=== PATIENT | female | born 1955 | race American Indian/Alaskan Native ===

== ENCOUNTER 2016-10-21 08:13 | Emergency (ER) | payer OTHER ==
[2016-10-21 08:22] VITALS: TEMP 98.2; BMI 29.2
[2016-10-21] MEDS ORDERED: SODIUM PHOSPHATE/NA BIPHOS 133 ML ENEMA PR ONE (08:43)
[2016-10-21] MEDS ORDERED: MAGNESIUM CITRATE 300 ML BOTTLE PO ONE (08:43)
[2016-10-21] MEDS ORDERED: ONDANSETRON 4 MG/2 ML VIAL IVPUSH ONE (08:49)
[2016-10-21] MEDS ORDERED: MAGNESIUM CITRATE 300 ML BOTTLE ONE (08:49)
[2016-10-21] MEDS ORDERED: ONDANSETRON 4 MG/2 ML VIAL ONE (08:49)
[2016-10-21 09:01] LABS: BASOPHIL 0.5 % (0-2.0); MCH 28.7 pg (25.7-33.7); MCHC 33.2 g/dl (32.0-36.0); MEAN CELL VOLUME 86.6 fl (80-96); MEAN PLT VOLUME 7.5 fl (7.5-11.1); NEUTROPHILS 39.2 % (42.8-82.8); PLATELET COUNT 228 K/MM3 (134-434); RDW 13.6 % (11.6-15.6); WHITE BLOOD COUNT 4.5 K/mm3 (4.0-10.0)
--- NOTE | 2016-10-21 09:08 | PDOC ---
History of Present Illness - General History Source: Patient Exam Limitations: No Limitations - History of Present Illness Initial Comments: 10/21/16 10:59 Allergies: NKA Primary Care Physician: Dr. Emma Connor <Raúl Lara - Last Filed: 10/21/16 10:59> - History of Present Illness Initial Comments: 10/21/16 09:02 The patient is a 61 year old female, with a significant past medical history of hypoparathyroidism, who presents to the emergency department complaining of constipation for approx. one week. The patient reports her last bowel movement was one week ago, though she has been passing small amounts of stool since then. She reports associated symptoms of nausea without vomiting, bloating, generalized abdominal pain that radiates to the back described as a pressure feeling. The patient reports she has had fewer meals in the past couple of days because of the constipation. She denies recent fevers, chills, headache. She denies recent vomit or diarrhea. She denies recent dysuria, frequency, urgency or hematuria. She denies recent chest pain or shortness of breath. <Josh Mabry - Last Filed: 10/21/16 11:17> - General Chief Complaint: Pain Stated Complaint: ABDOMINAL PAIN, DIZZINESS, TINGLING FINGERS Time Seen by Provider: 10/21/16 08:25 Past History <Raúl Lara - Last Filed: 10/21/16 10:59> - Past Medical History Anemia: No Asthma: Yes Cancer: No Cardiac Disorders: No CVA: No COPD: No CHF: No Dementia: No Diabetes: No GI Disorders: Yes (gerd) Disorders: No HTN: No Hypercholesterolemia: Yes Liver Disease: No Suicide Attempt (Hx): No Seizures: No Thyroid Disease: No - Surgical History Abdominal Surgery: No Appendectomy: No Cardiac Surgery: No Cholecystectomy: No Lung Surgery: No Neurologic Surgery: No Orthopedic Surgery: No - Psycho/Social/Smoking Cessation Hx Suicidal Ideation: No Smoking Status: No Smoking History: Never smoked Have you smoked in the past 12 months: No Number of Cigarettes Smoked Daily: 0 Information on smoking cessation initiated: No Hx Alcohol Use: No Drug/Substance Use Hx: No Substance Use Type: None Hx Substance Use Treatment: No <Josh Mabry - Last Filed: 10/21/16 11:17> - Past Medical History Allergies/Adverse Reactions: Allergies Allergy/AdvReac Type Severity Reaction Status Date / Time No Known Allergies Allergy Verified 10/21/16 08:23 Home Medications: Ambulatory Orders NK [No Known Home Medication] 10/21/16 Review of Systems - Review of Systems Comments:: 10/21/16 09:03 "GENERAL/CONSTITUTIONAL: No fever or chills. No weakness. HEAD, EYES, EARS, NOSE AND THROAT: No change in vision. No ear pain or discharge. No sore throat. CARDIOVASCULAR: No chest pain or shortness of breath. RESPIRATORY: No cough, wheezing, or hemoptysis. GASTROINTESTINAL: +Nausea. +Constipation. No vomiting or diarrhea. GENITOURINARY: No dysuria, frequency, or change in urination. MUSCULOSKELETAL: +epigastric pain. No joint or muscle swelling or pain. SKIN: No rash NEUROLOGIC: No headache, vertigo, loss of consciousness, or change in strength/ sensation. ENDOCRINE: No increased thirst. No abnormal weight change. HEMATOLOGIC/LYMPHATIC: No anemia, easy bleeding, or history of blood clots. ALLERGIC/IMMUNOLOGIC: No hives or skin allergy. " <Josh Mabry - Last Filed: 10/21/16 11:17> *Physical Exam - Vital Signs Last Vital Signs Temp Pulse Resp BP Pulse Ox 98.2 F 73 18 145/82 100 10/21/16 08:18 10/21/16 08:18 10/21/16 08:18 10/21/16 08:18 10/21/16 08:18 <Raúl Lara - Last Filed: 10/21/16 10:59> - Vital Signs Last Vital Signs Temp Pulse Resp BP Pulse Ox 98.2 F 73 18 145/82 100 10/21/16 08:18 10/21/16 08:18 10/21/16 08:18 10/21/16 08:18 10/21/16 08:18 - Physical Exam Comments: 10/21/16 09:04 "GENERAL: Awake, alert, and fully oriented. HEAD: No signs of trauma EYES: PERRLA, EOMI, sclera anicteric, conjunctiva clear ENT: Auricles normal inspection, hearing grossly normal, nares patent, oropharynx clear without exudates. Moist mucosa NECK: Normal ROM, supple, no lymphadenopathy, JVD, or masses LUNGS: Breath sounds equal, clear to auscultation bilaterally. No wheezes, and no crackles HEART: Regular rate and rhythm, normal S1 and S2, no murmurs, rubs or gallops ABDOMEN: Soft, nontender, normoactive bowel sounds. No guarding, no rebound. No masses EXTREMITIES: Normal range of motion, no edema. No clubbing or cyanosis. No cords , erythema, or tenderness NEUROLOGICAL: Cranial nerves II through XII grossly intact. Normal speech, normal gait SKIN: Warm, Dry, normal turgor, no rashes or lesions noted. " <RaghavendraJosh - Last Filed: 10/21/16 11:17> ED Treatment Course - LABORATORY CBC & Chemistry Diagram: 10/21/16 08:50 10/21/16 08:50 - ADDITIONAL ORDERS Additional order review: 10/21/16 08:50 RBC 4.45 MCV 86.6 MCHC 33.2 RDW 13.6 MPV 7.5 Neutrophils % 39.2 L D Lymphocytes % 49.1 H D Monocytes % 9.2 Eosinophils % 2.0 D Basophils % 0.5 - RADIOLOGY Radiograph Interpretation: 10/21/16 10:13 Exam#: Type/Exam: [id number] Rad/Abdomen Nigd-Rpzuwzo-Lnwalrz Abdomen: Obstruction Imaging reveals scoliosis, no sign of organomegaly and no sign of free air or calcifictions of significance. Obstructive process is not appreciated. The bones and soft tissue are intact. There is aortic calcification. If symptoms persist, further imagin with CT may be of help. Impression: No sign of an obstructive process, free air or organomegaly. Reported by Dr. Gonzálze Oliver MD. 10/21/16 0934 - Medications Given in the ED: ED Medications Discontinued Medications Generic Name Dose Route Start Last Admin Trade Name Freq PRN Reason Stop Dose Admin Magnesium Citrate 300 ml 10/21/16 08:43 10/21/16 08:57 Citroma - PO 10/21/16 08:44 300 ml ONCE ONE Administration Ondansetron HCl 4 mg 10/21/16 08:49 10/21/16 08:57 Zofran Injection IVPUSH 10/21/16 08:50 4 mg ONCE ONE Administration <Raúl Lara - Last Filed: 10/21/16 10:59> - LABORATORY CBC & Chemistry Diagram: 10/21/16 08:50 10/21/16 08:50 - RADIOLOGY Radiology Studies Ordered: Category Date Time Status ABDOMEN [id number] [RAD] Stat Radiology 10/21/16 08:44 Ordered - Medications Given in the ED: ED Medications Discontinued Medications Generic Name Dose Route Start Last Admin Trade Name Kristine PRN Reason Stop Dose Admin Magnesium Citrate 300 ml 10/21/16 08:43 10/21/16 08:57 Citroma - PO 10/21/16 08:44 300 ml ONCE ONE Administration Ondansetron HCl 4 mg 10/21/16 08:49 10/21/16 08:57 Zofran Injection IVPUSH 10/21/16 08:50 4 mg ONCE ONE Administration <Ou,Josh - Last Filed: 10/21/16 11:17> Medical Decision Making - Medical Decision Making 10/21/16 09:04 61 F with h/o hypoparathyroidism presents to ER with constipation. Possibly related to hypocalcemia. Pt with benign abdomen, no s/s mechanical obstruction. However, given h/o prior c section, will obtain XR to r/o SBO. - Labs - XR - Mag citrate, fleets enema 10/21/16 11:11 CBC,CMP WBC 4.5 K/mm3 (4.0-10.0) 10/21/16 08:50 RBC 4.45 M/mm3 (3.60-5.2) 10/21/16 08:50 Hgb 12.8 GM/dL (10.7-15.3) 10/21/16 08:50 Hct 38.5 % (32.4-45.2) 10/21/16 08:50 MCV 86.6 fl (80-96) 10/21/16 08:50 MCH 28.7 pg (25.7-33.7) 10/21/16 08:50 MCHC 33.2 g/dl (32.0-36.0) 10/21/16 08:50 RDW 13.6 % (11.6-15.6) 10/21/16 08:50 Plt Count 228 K/MM3 (134-434) 10/21/16 08:50 MPV 7.5 fl (7.5-11.1) 10/21/16 08:50 Neutrophils % 39.2 % (42.8-82.8) L D 10/21/16 08:50 Lymphocytes % 49.1 % (8-40) H D 10/21/16 08:50 Monocytes % 9.2 % (3.8-10.2) 10/21/16 08:50 Eosinophils % 2.0 % (0-4.5) D 10/21/16 08:50 Basophils % 0.5 % (0-2.0) 10/21/16 08:50 Sodium 141 mmol/L (136-145) 10/21/16 08:50 Potassium 4.0 mmol/L (3.5-5.1) 10/21/16 08:50 Chloride 103 mmol/L (98-107) 10/21/16 08:50 Carbon Dioxide 27 mmol/L (21-32) 10/21/16 08:50 Anion Gap 11 (8-16) 10/21/16 08:50 BUN 10 mg/dL (7-18) 10/21/16 08:50 Creatinine 0.6 mg/dL (0.55-1.02) 10/21/16 08:50 Creat Clearance w eGFR > 60 (>60) 10/21/16 08:50 Random Glucose 105 mg/dL (74-106) 10/21/16 08:50 Calcium 8.4 mg/dL (8.5-10.1) L 10/21/16 08:50 Phosphorus 3.2 mg/dL (2.5-4.9) 10/21/16 08:50 Magnesium 1.8 mg/dL (1.8-2.4) 10/21/16 08:50 Total Bilirubin 0.4 mg/dL (0.2-1.0) 10/21/16 08:50 AST 28 U/L (15-37) D 10/21/16 08:50 ALT 28 U/L (12-78) D 10/21/16 08:50 Alkaline Phosphatase 64 U/L (45-117) 10/21/16 08:50 Total Protein 7.0 g/dl (6.4-8.2) 10/21/16 08:50 Albumin 3.8 g/dl (3.4-5.0) 10/21/16 08:50 Lipase 94 U/L (73-393) 10/21/16 08:50 Pt reassessed s/p fleets enema and mag citrate. Reports that she had 2 large bowel movements and feels significantly better and now denies any pain. Has tolerated PO in ER. Abdomen is benign. XR shows no signs of obstruction. Pt clinically stable for DC. <Josh Mabry - Last Filed: 10/21/16 11:17> *DC/Admit/Observation/Transfer - Attestations Scribe Attestion: 10/21/16 09:25 Documentation prepared by Raúl Lara, acting as center medical specialist for Josh Mabry MD. <Raúl Lara - Last Filed: 10/21/16 10:59> - Attestations Physician Attestion: 10/21/16 11:17 I, Dr. Josh Mabry MD, attest that this document has been prepared under my direction and personally reviewed by me in its entirety. I further attest, that it accurately reflects all work, treatment, procedures and medical decision -making performed by me. <Josh Mabry - Last Filed: 10/21/16 11:17> Diagnosis at time of Disposition: Constipation - Discharge Dispostion Disposition: HOME Condition at time of disposition: Good - Referrals Referrals: Emma Connor MD [Primary Care Provider] - - Patient Instructions Printed Discharge Instructions: DI for Constipation Additional Instructions: Please follow up with your behavioral health clinician to have your constipation further addressed. You may need to be put on a more aggressive regimen of stool softeners. See your steamer operator regarding your hypoparathyroidism and calcium levels. Your calcium today was not significantly decreased, but a low calcium can potentially cause constipation.
[2016-10-21 09:28] LABS: PHOSPHOROUS 3.2 mg/dL (2.5-4.9)
[2016-10-21 09:29] LABS: ALBUMIN 3.8 g/dl (3.4-5.0); ALK PHOS 64 U/L (45-117); ANION GAP 11 (8-16); BILIRUBIN,TOTAL 0.4 mg/dL (0.2-1.0); CALCIUM 8.4 mg/dL (8.5-10.1); CO2 27 mmol/L (21-32); CREATININE 0.6 mg/dL (0.55-1.02); GLUCOSE,RANDOM 105 mg/dL (74-106); SGPT/ALT 28 U/L (12-78)
[2016-10-21 09:57] LABS: MAGNESIUM 1.8 mg/dL (1.8-2.4)
[2016-10-21 09:58] LABS: SGOT/AST 28 U/L (15-37)
[2016-10-21 11:25] VITALS: BP 116/70; PULSE 64
== END 2016-10-21 11:25 | disposition home or self-care (01) ==
LOC: JER 08:13
PROC: 3E033GC Introduction of Other Therapeutic Substance into Peripheral Vein, Percutaneous Approach (ICD-10-PCS; principal; 2016-10-21)
DX: K59.09 Other constipation (principal); E20.9 Hypoparathyroidism, unspecified
CPT/HCPCS: 36415; 74020-TC; 80053; 83690; 83735; 84100; 85025; 96374; 99283-25

== ENCOUNTER 2016-12-19 06:41 | Observation (INO) | payer OTHER ==
--- NOTE | 2016-12-19 07:46 | PDOC ---
History of Present Illness - General Chief Complaint: Pain, Acute Stated Complaint: NAUSEA Time Seen by Provider: 12/19/16 07:21 - History of Present Illness Initial Comments: 12/19/16 07:45 The patient is a 61 yo f w/ PMH DM, GERD, HLD, HTN comes into the ED c/o a 1 week history of worsening nausea, vomiting and abdominal pain. The patient states that approximately 1 month ago, she began having a dull right sided epigastric pain which radiates across the right side of her abdomen and to her back. The pain is worse on eating and has no alleviating factors. The pain got progressively worse and became associated with nausea and NBNB vomiting on sunday. The patient also endorses decreased appetite and a 36 lb weight loss over the last 2 months as well as constipation. The patient has seen a GI doctor for these problems in the past and was scheduled for EGD, but was unable to undergo the exam 2/2 weakness. Patient measured a fever to 100 degrees at home. Patient denies chills, shortness of breath or palpitations. 12/19/16 10:26 Past History - Past Medical History Allergies/Adverse Reactions: Allergies Allergy/AdvReac Type Severity Reaction Status Date / Time No Known Allergies Allergy Verified 12/19/16 06:57 Home Medications: Ambulatory Orders Docusate Sodium [Colace -] 100 mg PO DAILY 11/24/16 Escitalopram Oxalate [Lexapro -] 5 mg PO DAILY 11/24/16 Lisinopril/Hydrochlorothiazide [Lisinopril-Hctz 10-12.5 mg Tab] 1 each PO DAILY 11/24/16 Metformin HCl [Metformin HCl ER] 500 mg PO DAILY 11/24/16 Simvastatin 5 mg PO DAILY 11/24/16 Trazodone HCl [Desyrel -] 50 mg PO HS 11/24/16 Anemia: No Asthma: Yes Cancer: No Cardiac Disorders: No CVA: No COPD: No CHF: No Dementia: No Diabetes: Yes (Pre-diabetes) GI Disorders: Yes (gerd) Disorders: No HTN: No Hypercholesterolemia: Yes Liver Disease: No Seizures: No Thyroid Disease: No - Surgical History Abdominal Surgery: No Appendectomy: No Cardiac Surgery: No Cholecystectomy: No Lung Surgery: No Neurologic Surgery: No Orthopedic Surgery: No - Suicide/Smoking/Psychosocial Hx Smoking Status: No Smoking History: Unknown if ever smoked Have you smoked in the past 12 months: No Number of Cigarettes Smoked Daily: 0 Information on smoking cessation initiated: No Hx Alcohol Use: No Drug/Substance Use Hx: No Substance Use Type: None Hx Substance Use Treatment: No Review of Systems - Review of Systems Constitutional: Yes: Fever (low grade to 100 at home). No: Chills Respiratory: No: Cough, Shortness of Breath Cardiac (ROS): No: Chest Pain, Edema, Palpitations ABD/GI: Yes: Constipated, Nausea, Poor Appetite, Vomiting, Abdominal cramping. No: Diarrhea, Tarry Stools : Yes: Frequency. No: Burning, Dysuria Musculoskeletal: Yes: Back Pain Integumentary: No: Bruising, Erythema Neurological: No: Headache, Numbness, Tingling *Physical Exam - Vital Signs Last Vital Signs Temp Pulse Resp BP Pulse Ox 97.8 F 80 14 125/87 95 12/19/16 06:58 12/19/16 06:58 12/19/16 06:58 12/19/16 06:58 12/19/16 06:58 - Physical Exam General Appearance: Yes: Appropriately Dressed, Mild Distress HEENT: positive: Normal Voice Neck: positive: Trachea midline Respiratory/Chest: positive: Lungs Clear, Normal Breath Sounds. negative: Chest Tender, Respiratory Distress, Accessory Muscle Use Cardiovascular: positive: Regular Rhythm, S1, S2, Tachycardia. negative: Edema , JVD, Murmur, Gallop/S3, Gallop/S4 Gastrointestinal/Abdominal: positive: Tender (exquisite tenderness to palpation in the epigastrium and right sided abdomen assoceated with increased nausea), Flat, Soft, Increased Bowel Sounds. negative: Guarding Musculoskeletal: positive: Normal Inspection, CVA Tenderness (CVA tenderness on the right associated with increased nausea ) Extremity: positive: Normal Inspection Integumentary: positive: Normal Color, Dry, Warm Neurologic: positive: Fully Oriented, Alert, Normal Mood/Affect, Normal Response Heart Score/ECG Review - ECG Intrepretation Rhythm: Regular Rhythm - [place]if[place]: Normal - ECG Impressions Normal ECG: Yes ED Treatment Course - LABORATORY CBC & Chemistry Diagram: 12/19/16 08:14 12/19/16 08:14 Medical Decision Making - Medical Decision Making 12/19/16 08:25 The patient is a 61 YO F W/ PMH DM, HLD, hypoparathyroidism s/p parathyroidectomy, HTN comes into the ED w/ a 1 month history of abdominal pain , nausea, vomiting, constipation and 36 lb weight loss over last month. Patient had a normal EGD and colonoscopy approximately 2 weeks ago. This constellation of symptoms is concerning for several conditions including colitis, small bowel obstruction, abdominal masses or cholecystitis. -CBC, CMP -Lipase -type and screen -coags -EKG -morphine 4mg -zofran 4mg -1L NS bolus -CT abdomen/pelvis with IV contrast -UA -Urine culture 12/19/16 09:33 -CBC, CMP WNL -Awaiting CT abdomen and Pelvis w/ contrast 12/19/16 10:21 -on reassessment, patient states that she feels better after medications -UA WNL 12/19/16 12:48 -CT negative for acute pathology -Patient will need to be admitted for further workup -a somatic disorder also needs to be considered for this patient. 12/19/16 12:52 -Discussed the case w/ Dr. Guevara, who will agree to accept the patient for observation. -will place consults to Dr. Hdez and Dr. Rausch at the request of Dr. Guevara *DC/Admit/Observation/Transfer Diagnosis at time of Disposition: Abdominal pain Qualifiers: Abdominal location: generalized Qualified Code(s): R10.84 - Generalized abdominal pain - Discharge Dispostion Condition at time of disposition: Improved Admit: Yes - Referrals Referrals: Emma Connor MD [Primary Care Provider] - - Patient Instructions - Post Discharge Activity
[2016-12-19] MEDS ORDERED: ONDANSETRON 4 MG/2 ML VIAL IVPUSH ONE (08:02)
[2016-12-19] MEDS ORDERED: SODIUM CHLORIDE 1,000 ML IV STA (08:13)
[2016-12-19] MEDS ORDERED: morphine CARPU-JECT 4 MG/1 ML DISP.SYRIN IVPUSH ONE (08:14)
[2016-12-19] MEDS ORDERED: ONDANSETRON 4 MG/2 ML VIAL ONE (08:16)
[2016-12-19 08:42] LABS: BASOPHIL 0.4 % (0-2.0); EOSINOPHIL 0.6 % (0-4.5); MCH 28.5 pg (25.7-33.7); MCHC 32.9 g/dl (32.0-36.0); MEAN CELL VOLUME 86.9 fl (80-96); MEAN PLT VOLUME 7.6 fl (7.5-11.1); NEUTROPHILS 54.9 % (42.8-82.8); PLATELET COUNT 230 K/MM3 (134-434); RDW 13.5 % (11.6-15.6); WHITE BLOOD COUNT 4.1 K/mm3 (4.0-10.0)
--- NOTE | 2016-12-19 08:48 | PDOC ---
Attending Attestation - Resident Resident Name: Raoul Mckeon - ED Attending Attestation I have performed the following: I have examined & evaluated the patient, The case was reviewed & discussed with the resident, I agree w/resident's findings & plan, Exceptions are as noted - HPI HPI: 12/19/16 08:45 61-year-old femalewith history of GERD, diabetes, high cholesterol presents with 2 months of worsening epigastric discomfort and anorexia particularly worsened over the last 2 weeks, with intractable nonbloody but bilious nausea and vomiting, worsening generalized weakness, and continued anorexia with over 30 pound weight loss. No fevers or chills, occasional night sweats. Seen by Dr. Jovel, had endoscopy and colonoscopy 2 weeks ago that were reportedly within normal limits. Presents today for worsening symptoms. - Physicial Exam PE: 12/19/16 08:46 Vital signs normal. No acute distress, no visible jaundice or pallor Abdomen is soft and nondistended, exquisitely tender in the epigastric and right abdomen without palpable mass Neurologically intact - Medical Decision Making 12/19/16 08:47 Patient seen and evaluated with the resident. I agree with the overall evaluation, assessment, and management with the following summary of visit: 61-year-old female with subacute but worsening upper abdominal discomfort in the setting of nausea/vomiting/anorexia and weight loss. Presentation could be consistent with broad differential, neoplasm is of some concern, rule out biliary/pancreatic etiology, possible gastroparesis, not consistent with obstruction. Labs, urinalysis EKG IV fluids, pain control, nausea control CT of the abdomen and pelvis Reassess 12/19/16 12:01 labs, ua, ctap wnl without acute abnormalities. Pt still quite uncomfortable, still with tenderness in the epigastric/R abdomen with guarding. Anorexia persists. Given the presentation and worsening clinical status with weight loss, will admit for hydration and expedited GI workup. ? psych/depression? as diagnosis of exclusion, but no acute ideations at this time. Pt agrees and prefers admission as well. Dr. Cheema, admitting for Dr. Connor , called. Heart Score/ECG Review #1 ECG reviewed & interpreted by me at: 09:41 General ECG Interpretation: Sinus Rhythm, Normal Rate (69), Normal Intervals ( qtc 424), No acute ischemic changes
[2016-12-19 08:55] LABS: INR 1.16 (0.82-1.09); PROTHROMBIN TIME (PATIENT) 13.1 SEC (9.98-11.88)
[2016-12-19 09:23] LABS: ANION GAP 7 (8-16); BILIRUBIN,TOTAL 0.5 mg/dL (0.2-1.0); CALCIUM 8.5 mg/dL (8.5-10.1); CO2 30 mmol/L (21-32); CREATININE 0.6 mg/dL (0.55-1.02); GLUCOSE,RANDOM 104 mg/dL (74-106); SGOT/AST 16 U/L (15-37); SGPT/ALT 22 U/L (12-78); TOT PROT 7.4 g/dl (6.4-8.2)
[2016-12-19 09:24] LABS: ALK PHOS 62 U/L (45-117)
[2016-12-19] MEDS ORDERED: morphine SULFATE 4 MG/ML VIAL ONE (09:28)
[2016-12-19 10:11] LABS: URINE APPEARANCE SLCLOUDY; URINE BILIRUBIN NEGATIVE (NEGATIVE); URINE BLOOD NEGATIVE (NEGATIVE); URINE COLOR YELLOW; URINE GLUCOSE (UA) NEGATIVE (NEGATIVE); URINE KETONE TRACE (NEGATIVE); URINE NITRITE NEGATIVE (NEGATIVE); URINE PROTEIN NEGATIVE (NEGATIVE); URINE UROBILINOGEN NEGATIVE mg/dL (0.2-1.0)
--- NOTE | 2016-12-19 10:36 | EKG ---
Test Reason : Blood Pressure : / mmHG Vent. Rate : 069 BPM Atrial Rate : 069 BPM P-R Int : 170 ms QRS Dur : 072 ms QT Int : 396 ms P-R-T Axes : 076 025 048 degrees QTc Int : 424 ms NORMAL SINUS RHYTHM NORMAL ECG WHEN COMPARED WITH ECG OF 28-MAR-2012 09:41, NO SIGNIFICANT CHANGE WAS FOUND REPEAT EKG IF CLINICALLY INDICATED Confirmed by CEZAR GALINDO MD ([id number]) on 12/19/2016 10:36:08 AM Referred By: Confirmed By:CEZAR GALINDO MD
[2016-12-19] MEDS ORDERED: ACETAMINOPHEN 325 MG TABLET (FP) PO ONE (16:03)
[2016-12-19] MEDS ORDERED: ACETAMINOPHEN 325 MG TABLET (FP) ONE (16:17)
[2016-12-19 16:19] VITALS: BMI 27.1
[2016-12-19 16:51] LABS: URINE LEUK ESTERASE Negative (NEGATIVE)
--- NOTE | 2016-12-19 18:24 | HP ---
Admitting History and Physical - Primary Care Physician PCP: Emma Connor - Admission Chief Complaint: weight loss, diffuse abdominal pain History of Present Illness: diffuse abdominal pain especially after eating, approx 20-23 pound weight loss in past months loss of appetite, today was vomiting, not able to keep food down History Source: Patient Limitations to Obtaining History: No Limitations - Past Medical History Cardiovascular: Yes: HTN, Hyperlipdemia Endocrine: Yes: Diabetes Mellitus (prediabetes), Hyperparathyroidism (in past) - Past Surgical History Additional Past Surgical History: parathyroidectomy for hypercalcemia x2 c section - Smoking History Smoking history: Former smoker Have you smoked in the past 12 months: No Aproximately how many cigarettes per day: 0 - Alcohol/Substance Use Hx Alcohol Use: No - Social History ADL: Independent History of Recent Travel: No Home Medications - Allergies Allergies/Adverse Reactions: Allergies Allergy/AdvReac Type Severity Reaction Status Date / Time No Known Allergies Allergy Verified 12/19/16 06:57 - Home Medications Home Medications: Ambulatory Orders Docusate Sodium [Colace -] 100 mg PO DAILY 11/24/16 Escitalopram Oxalate [Lexapro -] 5 mg PO DAILY 11/24/16 Lisinopril/Hydrochlorothiazide [Lisinopril-Hctz 10-12.5 mg Tab] 1 each PO DAILY 11/24/16 Metformin HCl [Metformin HCl ER] 500 mg PO DAILY 11/24/16 Simvastatin 5 mg PO DAILY 11/24/16 Trazodone HCl [Desyrel -] 50 mg PO HS 11/24/16 Family Disease History - Family Disease History Family History: Unremarkable Review of Systems - Review of Systems Constitutional: reports: Loss of Appetite, Unintentional Wgt. Loss, Weakness Eyes: reports: No Symptoms HENT: reports: No Symptoms Neck: reports: No Symptoms Cardiovascular: reports: No Symptoms Respiratory: reports: No Symptoms Gastrointestinal: reports: Abdominal Pain, Constipation, Vomiting. denies: Melena, Rectal Bleeding Genitourinary: reports: No Symptoms Musculoskeletal: reports: No Symptoms Integumentary: reports: No Symptoms Neurological: reports: No Symptoms Endocrine: reports: No Symptoms Hematology/Lymphatic: reports: No Symptoms Psychiatric: reports: Depression Physical Examination Vital Signs: Vital Signs Temperature 98.3 F 12/19/16 17:00 Pulse Rate 60 12/19/16 17:00 Respiratory Rate 18 12/19/16 17:00 Blood Pressure 134/70 12/19/16 17:00 O2 Sat by Pulse Oximetry (%) 99 12/19/16 16:14 Constitutional: Yes: Well Nourished, No Distress Eyes: Yes: Conjunctiva Clear HENT: Yes: Atraumatic, Normocephalic Neck: Yes: Supple, Trachea Midline Cardiovascular: Yes: Regular Rate and Rhythm Respiratory: Yes: Regular, CTA Bilaterally Gastrointestinal: Yes: Normal Bowel Sounds, Soft, Tenderness (mild diffuse) Renal/: Yes: WNL Extremities: Yes: WNL Edema: No Peripheral Pulses WNL: Yes Integumentary: Yes: WNL Neurological: Yes: WNL Psychiatric: Yes: Other (flat affect denies suicidal ideation, but has stated that sometimes she does not feel like living) Labs: CBC, BMP 12/19/16 08:14 12/19/16 08:14 Imaging - Results Cat Scan: Report Reviewed Problem List - Problems (1) Vomiting Code(s): R11.10 - VOMITING, UNSPECIFIED Qualifiers: Vomiting type: unspecified Vomiting Intractability: non-intractable Nausea presence: with nausea Qualified Code(s): R11.2 - Nausea with vomiting, unspecified (2) Abdominal pain Code(s): R10.9 - UNSPECIFIED ABDOMINAL PAIN Qualifiers: Abdominal location: generalized Qualified Code(s): R10.84 - Generalized abdominal pain (3) Constipation Code(s): K59.00 - CONSTIPATION, UNSPECIFIED Qualifiers: Constipation type: unspecified constipation type Qualified Code(s): K59.00 - Constipation, unspecified (4) Weakness Code(s): R53.1 - WEAKNESS Assessment/Plan extensive gi w/up including CT abd. EGD, colonoscopy upper gi series within past month pt still c/o loss of appetite, abd.pain-somatization? depression? very flat affect, appears depressed trial of remeron psychiatric evaluation requested d/w
[2016-12-19] MEDS ORDERED: POTASSIUM CHLORIDE 10 MEQ in SODIUM CHLORIDE 0.45% 1,000 ML IVPB SCH (18:30)
--- NOTE | 2016-12-19 19:01 | CON.GI ---
Consult Consult Specialty:: GI Referred by:: Dr Amaro Reason for Consultation:: abdominal pain - History of Present Illness Chief Complaint: abdominal pain History of Present Illness: 61 F well-known to myself, who has been c/o abdominal pain for several years. She has had a very complete w/u which has been negative. She has had several admissions to the hospital which have been unrevealing. She is now admitted for same issue. She states pain is post-prandial. - History Source History Provided By: Patient, Medical Record Limitations to Obtaining History: No Limitations - Past Medical History Cardio/Vascular: Yes: HTN, Hyperlipdemia Endocrine: Yes: Diabetes Mellitus (prediabetes), Hyperparathyroidism (in past) - Alcohol/Substance Use Hx Alcohol Use: No - Smoking History Smoking history: Former smoker Have you smoked in the past 12 months: No Aproximately how many cigarettes per day: 0 - Social History ADL: Independent History of Recent Travel: No Home Medications - Allergies Allergies/Adverse Reactions: Allergies Allergy/AdvReac Type Severity Reaction Status Date / Time No Known Allergies Allergy Verified 12/19/16 06:57 - Home Medications Home Medications: Ambulatory Orders Docusate Sodium [Colace -] 100 mg PO DAILY 11/24/16 Escitalopram Oxalate [Lexapro -] 5 mg PO DAILY 11/24/16 Lisinopril/Hydrochlorothiazide [Lisinopril-Hctz 10-12.5 mg Tab] 1 each PO DAILY 11/24/16 Metformin HCl [Metformin HCl ER] 500 mg PO DAILY 11/24/16 Simvastatin 5 mg PO DAILY 11/24/16 Trazodone HCl [Desyrel -] 50 mg PO HS 11/24/16 Physical Exam-GI Vital Signs: Vital Signs Temperature 98.3 F 12/19/16 17:00 Pulse Rate 60 12/19/16 17:00 Respiratory Rate 18 12/19/16 17:00 Blood Pressure 134/70 12/19/16 17:00 O2 Sat by Pulse Oximetry (%) 99 12/19/16 16:14 Constitutional: Yes: Well Nourished, No Distress, Calm HENT: Yes: Normocephalic Cardiovascular: Yes: Regular Rate and Rhythm Respiratory: Yes: CTA Bilaterally Gastrointestinal Inspection: Yes: WNL ...Auscultate: Yes: Normoactive Bowel Sounds ...Palpate: Yes: Soft. No: Tenderness ...Percussion: Yes: Dullness Labs: CBC, BMP 12/19/16 08:14 12/19/16 08:14 INR, PTT INR 1.16 (0.82-1.09) H 12/19/16 08:14 Imaging - Results Cat Scan: Report Reviewed (fatty liver) Assessment/Plan 61 F well-known to myself again admitted with abdominal pain Clear liquids Tox screen -r/o marijuana related cyclic vomiting Advance diet toorrow pending clinical
[2016-12-19] MEDS: MIRTAZAPINE 15 MG TABLET (FP) PO SCH ×2 (21:26→21:27)
[2016-12-19] MEDS ORDERED: traZODone HCL 50 MG TABLET (FP) PO SCH (22:00)
--- NOTE | 2016-12-20 09:15 | PN ---
Progress Note (short form) - Note Progress Note: tolerating food well in hospital no vomiting affect is still very flat, denies new complaints, slept well Vital Signs Period Temp Pulse Resp BP Sys/Zarate Pulse Ox Last 24 Hr 97.9 F-98.3 F 60-66 18-18 102-134/58-70 99-100 s1s2 rrr lungs cta abd soft +bs nt no edema imp /plan abd pain with extensive unremarkable work up awaiting psychiatry evaluation for somatization/depression bp, sugar has been normal stop bp meds and metformin started remeron last night instead of lexapro if seen by psychiatry would dc home today Problem List - Problems (1) Vomiting Code(s): R11.10 - VOMITING, UNSPECIFIED Qualifiers: Vomiting type: unspecified Vomiting Intractability: non-intractable Nausea presence: with nausea Qualified Code(s): R11.2 - Nausea with vomiting, unspecified (2) Abdominal pain Code(s): R10.9 - UNSPECIFIED ABDOMINAL PAIN Qualifiers: Abdominal location: generalized Qualified Code(s): R10.84 - Generalized abdominal pain (3) Constipation Code(s): K59.00 - CONSTIPATION, UNSPECIFIED Qualifiers: Constipation type: unspecified constipation type Qualified Code(s): K59.00 - Constipation, unspecified (4) Weakness Code(s): R53.1 - WEAKNESS
[2016-12-20] MEDS ORDERED: DOCUSATE SODIUM 100 MG CAPSULE (FP) PO SCH (10:00)
[2016-12-20 10:02] LABS: URINE MARIJUANA THC NEGATIVE ng/ml (CUTOFF=50)
[2016-12-20 12:46] VITALS: BP 102/47; PULSE 89; TEMP 98.2
--- NOTE | 2016-12-21 08:21 | DS ---
Physical Examination Vital Signs: Vital Signs Temperature 98.2 F 12/20/16 10:00 Pulse Rate 89 12/20/16 10:00 Respiratory Rate 18 12/20/16 10:00 Blood Pressure 102/47 12/20/16 10:00 O2 Sat by Pulse Oximetry (%) 99 12/20/16 05:18 Labs: CBC, BMP 12/19/16 08:14 12/19/16 08:14 Discharge Summary Reason For Visit: ABD PAIN Hospital Course: admitted for intractable nausea and vomiting and chronic abd pain with extensive unremarkable work up CT abdomen, recent egd, colonoscopy and UGI series all unremarkable pt has flat affect, lost mother in the summer, appears depressed symptoms possibly due to somatization/depression bp, sugar has been normal stop bp meds and metformin started remeron last night instead of lexapro recommended psychiatric evaluation, however pt did not want to wait for her in the hospital eating without vomiting or nausea medically stable for dc with close outpt f/up Condition: Improved - Instructions Referrals: Emma Connor MD [Primary Care Provider] - Disposition: HOME - Home Medications Comprehensive Discharge Medication List: Ambulatory Orders Docusate Sodium [Colace -] 100 mg PO DAILY 11/24/16 Trazodone HCl [Desyrel -] 50 mg PO HS 11/24/16 Mirtazapine [Remeron -] 15 mg PO HS #30 tablet 12/20/16
== END 2016-12-20 13:46 | disposition home or self-care (01) ==
LOC: JER 06:41 → JERBED 12:57 → J8W 16:56
PROVIDERS: ADMIT Internal Medicine; ATTEND Internal Medicine
PROC: 3E033NZ Introduction of Analgesics, Hypnotics, Sedatives into Peripheral Vein, Percutaneous Approach (ICD-10-PCS; principal; 2016-12-19)
PROC: 3E033GC Introduction of Other Therapeutic Substance into Peripheral Vein, Percutaneous Approach (ICD-10-PCS; 2016-12-19)
PROC: 3E0337Z Introduction of Electrolytic and Water Balance Substance into Peripheral Vein, Percutaneous Approach (ICD-10-PCS; 2016-12-19)
DX: R10.84 Generalized abdominal pain (principal); K59.00 Constipation, unspecified; R11.2 Nausea with vomiting, unspecified; R53.1 Weakness; I10 Essential (primary) hypertension; E11.9 Type 2 diabetes mellitus without complications; E78.5 Hyperlipidemia, unspecified; K21.9 Gastro-esophageal reflux disease without esophagitis; J45.909 Unspecified asthma, uncomplicated; R73.03 Prediabetes; Z79.84 Long term (current) use of oral hypoglycemic drugs; Z87.891 Personal history of nicotine dependence
CPT/HCPCS: 36415; 74177-TC; 80053; 80307; 81003; 83690; 85025; 85610; 86850; 86900; 86901; 87086; 93005; 93010; 96361; 96374; 96375; 99285-25; G0378

== ENCOUNTER 2017-07-05 07:25 | Emergency (ER) | payer OTHER ==
[2017-07-05 07:32] VITALS: BP 122/75; PULSE 75; TEMP 98.4; BMI 29.8
--- NOTE | 2017-07-05 07:37 | PDOC ---
Attending Attestation - Resident Resident Name: Lucien Starkey - ED Attending Attestation I have performed the following: I have examined & evaluated the patient, The case was reviewed & discussed with the resident, I agree w/resident's findings & plan - HPI HPI: 07/05/17 08:19 The patient is a 61 year old female, with a significant past medical history of prediabetes, hypertension, hyperlipidemia, GERD, parathyroid cyst, and asthma, who presents to the emergency department with multiple medical complaints for several months. Patient endorses episodes of blurry vision and lightheadedness, but denies any headache, dizziness, or photophobia. She reports diffuse body aches, back pain, and tingling in her hands. Patient reports presenting to the ED today for worsening tingling, and states she saw her Commissions Analyst yesterday, who recommended she come to the ED for blood work. She endorses some nausea and vomiting, but denies any abdominal pain, diarrhea, or constipation. Patient reports she is schedule for follow-up with GI, Dr. Mckinley, next week for endoscopy. She denies any recent fever or chills. She denies any recent travel or sick contacts. Allergies: NKDA Past Surgical History: None reported Social History: Former smoker. No ETOH or recreational drug use. - Medical Decision Making 07/05/17 08:19 Documentation prepared by Guilherme Andres, acting as medical physiologist for Barby Rutherford MD. <Guilherme Andres - Last Filed: 07/05/17 08:19> - Physicial Exam PE: 07/05/17 08:25 Agree with resident exam. Patient is well appearing and in no acute distress. Neurologically intact. Abdomen is soft, non tender and non distended. - Medical Decision Making Pt presents to the ED with multiple complaints, including nausea and generalized weakness. differential includes hypothyroidism, electrolyte derrangement. Will check labs and reassess. 07/05/17 08:26 <Barby Rutherford - Last Filed: 07/05/17 08:36>
--- NOTE | 2017-07-05 07:46 | PDOC ---
History of Present Illness - General Chief Complaint: Lightheaded Stated Complaint: BLURRED VISION/SIDE PAIN/TINGLING Time Seen by Provider: 07/05/17 07:36 - History of Present Illness Initial Comments: 07/05/17 08:36 The patient is a 61 year old female with a history of HTN, HLD, DM, Parathyroid cyst who presents for evaluation of multiple medical complaints. The patient reports lightheadedness, blurred vision, tingling in her extremities, and generalized back pain with radiation into her legs over the past several months. She notes worsening symptoms over the past 1 day including some nausea and 1 episode of non-bilious, non-bloody vomiting prompting her presentation to the ED for further evaluation. She notes that she saw her primary care provider 1 day ago as well as an respiratory care assistant 1 day ago for her parathyroid cyst and was scheduled to have blood work performed but has been unable to go since that time. She notes that she has an endoscopy scheduled next week as well for long standing abdominal discomfort issues. She otherwise denies fevers , chills, SOB, chest pain, or changes with urination or bowel movements. Past History - Past Medical History Allergies/Adverse Reactions: Allergies Allergy/AdvReac Type Severity Reaction Status Date / Time No Known Allergies Allergy Verified 07/05/17 07:26 Home Medications: Ambulatory Orders Docusate Sodium [Colace -] 100 mg PO DAILY 11/24/16 traZODone HCL [Desyrel -] 50 mg PO HS 11/24/16 Mirtazapine [Remeron -] 15 mg PO HS #30 tablet 12/20/16 Anemia: No Asthma: Yes Cancer: No Cardiac Disorders: No CVA: No COPD: No CHF: No DVT: No Dementia: No Diabetes: Yes (Pre-diabetes) GI Disorders: Yes (gerd) Disorders: No HTN: No Hypercholesterolemia: Yes Liver Disease: No Seizures: No Thyroid Disease: No Other medical history: parathyroid cyst - Surgical History Abdominal Surgery: No Appendectomy: No Cardiac Surgery: No Cholecystectomy: No Lung Surgery: No Neurologic Surgery: No Orthopedic Surgery: No - Suicide/Smoking/Psychosocial Hx Smoking Status: No Smoking History: Former smoker Have you smoked in the past 12 months: No Number of Cigarettes Smoked Daily: 0 Information on smoking cessation initiated: No Hx Alcohol Use: No Drug/Substance Use Hx: No Substance Use Type: None Hx Substance Use Treatment: No Review of Systems - Review of Systems Comments:: 07/05/17 08:41 Constitutional: No fevers, chills, fatigue, HEENT: No Rhinorrhea, nasal congestion, visual changes Cardiovascular: Lightheadedness. No chest pain, syncope, palpitations, Respiratory: No Cough, SOB, Hemoptysis, Gastrointestinal: Nausea, Vomiting. No Constipation, Diarrhea, Melena Genitourinary: No Dysuria, Frequency, Urgency, Hesitancy, Hematuria, Flank pain Musculoskeletal: Myalgia, No arthralgia Skin: No rashes, itching, bruising, pallor Neurologic: Tingling. No Headache, Dizziness, Numbness, Weakness, Psychiatric: No Hallucinations. No SI or HI *Physical Exam - Vital Signs Last Vital Signs Temp Pulse Resp BP Pulse Ox 98.4 F 75 18 122/75 100 07/05/17 07:28 07/05/17 07:28 07/05/17 07:28 07/05/17 07:28 07/05/17 07:28 - Physical Exam Comments: 07/05/17 08:42 General Appearance: Nourished. No Apparent Distress HEENT: EOMI, HALIMA. No Pharyngeal Erythema, Tonsillar Exudate, Tonsillar Erythema Neck: No Cervical Lymphadenopathy Respiratory/Chest: Lungs Clear, Normal Breath Sounds. No Crackles, Rales, Rhonchi, Wheezing Cardiovascular: Regular Rhythm, Regular Rate. No Murmur, Gallops, Rubs Gastrointestinal/Abdominal: Normal Bowel Sounds, Soft. No Guarding, Rebound, Tenderness Musculoskeletal: No CVA Tenderness Extremity: Normal Capillary Refill Integumentary: Normal Color, Dry, Warm Neurologic: rush seater II-XII NML intact, Fully Oriented, Alert, Normal Mood/Affect, Normal Response, Motor Strength 5/5. Heart Score/ECG Review #1 ECG reviewed & interpreted by me at: 08:43 General ECG Interpretation: Sinus Rhythm, Normal Rate, Normal Intervals, No acute ischemic changes ED Treatment Course - LABORATORY CBC & Chemistry Diagram: 07/05/17 08:10 07/05/17 08:10 Medical Decision Making - Medical Decision Making 07/05/17 08:43 The patient is a 61 year old female with a history of HTN, HLD, DM, Parathyroid cyst who presents for evaluation of multiple medical complaints. Differential includes but is not limited to: Thyroid dysfunction, Pancreatitis, Musculoskeletal, Infectious, Metabolic Derangement. Given the patient history, we will obtain a cbc, cmp, lipase, tsh and ekg to evaluate further for possible etiologies. We will treat with iv fluids and zofran in the meantime and continue to monitor and reassess. 07/05/17 09:43 CBC, cmp, lipase, tsh are unremarkable. We are comfortable discharging the patient home at this time with primary care provider follow up. We discussed the results, plan, and return precautions with the patient who voiced understanding and is agreeable with the plan. *DC/Admit/Observation/Transfer Diagnosis at time of Disposition: Tingling, Nausea - Discharge Dispostion Disposition: HOME Condition at time of disposition: Stable Decision to Admit order: No - Referrals Referrals: Emma Connor MD [Primary Care Provider] - - Patient Instructions Printed Discharge Instructions: DI for Numbness/tingling Additional Instructions: Please return to the ER if you experience concerning or worsening symptoms including worsening pain, vomiting, fevers, or weakness. Your lab results were normal here in the ER. It is important that you call to schedule a follow up appointment with your primary care provider within 2-3 days to discuss your ER visit and further management of your symptoms. - Post Discharge Activity
[2017-07-05] MEDS ORDERED: SODIUM CHLORIDE 1,000 ML IV STA (07:50)
[2017-07-05] MEDS ORDERED: ONDANSETRON 4 MG/2 ML VIAL IVPUSH ONE (07:50)
[2017-07-05 08:26] LABS: BASO % 0.7 % (0-2.0); HEMATOCRIT 40.3 % (32.4-45.2); HEMOGLOBIN 13.3 GM/dL (10.7-15.3); LYMPH % 32.5 % (8-40); MCH 28.6 pg (25.7-33.7); MCHC 32.9 g/dl (32.0-36.0); MEAN CELL VOLUME 86.9 fl (80-96); MONO % 8.5 % (3.8-10.2); NEUT % 57.3 % (42.8-82.8); PLATELET COUNT 262 K/MM3 (134-434); RBC 4.64 M/mm3 (3.60-5.2); RDW 13.3 % (11.6-15.6); WHITE BLOOD COUNT 6.5 K/mm3 (4.0-10.0)
[2017-07-05] MEDS ORDERED: ONDANSETRON 4 MG/2 ML VIAL ONE (09:07)
[2017-07-05 09:10] LABS: CHLORIDE 102 mmol/L (98-107); SODIUM 138 mmol/L (136-145)
[2017-07-05 09:12] LABS: BLOOD UREA NITROGEN 22 mg/dL (7-18)
[2017-07-05 09:28] LABS: ALBUMIN 3.9 g/dl (3.4-5.0); ALK PHOS 60 U/L (45-117); ANION GAP 7 (8-16); BILIRUBIN,TOTAL 0.5 mg/dL (0.2-1.0); CALCIUM 8.5 mg/dL (8.5-10.1); CO2 29 mmol/L (21-32); CREATININE 0.9 mg/dL (0.55-1.02); GLUCOSE,RANDOM 109 mg/dL (74-106); SGPT/ALT 30 U/L (12-78); TOT PROT 7.8 g/dl (6.4-8.2)
[2017-07-05 09:33] LABS: POTASSIUM 4.7 mmol/L (3.5-5.1)
[2017-07-05 09:34] LABS: SGOT/AST 36 U/L (15-37)
--- NOTE | 2017-07-05 13:26 | EKG ---
Test Reason : Blood Pressure : / mmHG Vent. Rate : 068 BPM Atrial Rate : 068 BPM P-R Int : 172 ms QRS Dur : 080 ms QT Int : 382 ms P-R-T Axes : 076 044 061 degrees QTc Int : 406 ms NORMAL SINUS RHYTHM NORMAL ECG WHEN COMPARED WITH ECG OF 19-DEC-2016 09:41, NO SIGNIFICANT CHANGE WAS FOUND Confirmed by CHASE GA MD ([id number]) on 07/05/2017 1:26:00 PM Referred By: Confirmed By:CHASE GA MD
== END 2017-07-05 10:06 | disposition home or self-care (01) ==
LOC: JER 07:25
PROC: 3E033GC Introduction of Other Therapeutic Substance into Peripheral Vein, Percutaneous Approach (ICD-10-PCS; principal; 2017-07-05)
DX: R20.0 Anesthesia of skin (principal); R11.2 Nausea with vomiting, unspecified; M54.5 Low back pain; I10 Essential (primary) hypertension; R73.03 Prediabetes; E78.5 Hyperlipidemia, unspecified; E21.4 Other specified disorders of parathyroid gland
CPT/HCPCS: 36415; 80053; 83690; 84443; 85025; 93005; 93010; 99283-25; J7030

== ENCOUNTER 2017-07-06 22:18 | Emergency (ER) | payer OTHER ==
[2017-07-06 22:31] VITALS: BP 129/65; PULSE 86; TEMP 97.2; BMI 30.8
--- NOTE | 2017-07-06 22:59 | PDOC ---
History of Present Illness - General History Source: Patient Exam Limitations: No Limitations - History of Present Illness Initial Comments: 07/07/17 00:31 The patient is a 61 year old female with past medical history of HTN, HLD, DM, GERD, Parathyroid cyst presents to the emergency department with generalized upper body pain. The patient reports generalized pain to the abdomen, sides, chest and back with increased pain to the left and right quadrant. The patient reports the pain gradually began earlier today when she was at the hair salon, since then the pains been constant, 10/10 in severity. The patient reports enroute to the ED, the pain was aggravated by road bumps. The patient states she was at the ED yesterday for blurred vision, numbness and tingling. The patient reports going to the urologist today, who suspects the patient might have kidney stones, was diagnosed with small bladder infection and was prescribed antibiotic. The patient reports associated symptoms of chronic constipation, reports taking laxative 2 days ago, with no stool passing. The patient reports she is able to pass gas. Denies dysuria, hematuria, frequency or urgency to urinate. Denies fever, chills, cough or headache. Denies nausea, vomiting or diarrhea. Allergies: Social history: None reported Surgical history: None reported PCP: Emma Connor MD <Mavis Mosley - Last Filed: 07/07/17 01:15> - General History Source: Patient Exam Limitations: No Limitations <Carly Andrade - Last Filed: 07/07/17 19:59> - General Chief Complaint: Pain Stated Complaint: PAIN Time Seen by Provider: 07/06/17 22:59 Past History <Mavis Mosley - Last Filed: 07/07/17 01:15> - Past Medical History Anemia: No Asthma: Yes Cancer: No Cardiac Disorders: No CVA: No COPD: No CHF: No DVT: No Dementia: No Diabetes: Yes GI Disorders: Yes (gerd) Disorders: No HTN: No Hypercholesterolemia: Yes Liver Disease: No Seizures: No Thyroid Disease: No - Surgical History Abdominal Surgery: No Appendectomy: No Cardiac Surgery: No Cholecystectomy: No Lung Surgery: No Neurologic Surgery: No Orthopedic Surgery: No - Suicide/Smoking/Psychosocial Hx Smoking Status: No Smoking History: Never smoked Have you smoked in the past 12 months: No Number of Cigarettes Smoked Daily: 0 Information on smoking cessation initiated: No Hx Alcohol Use: No Drug/Substance Use Hx: No Substance Use Type: None Hx Substance Use Treatment: No <Carly Andrade - Last Filed: 07/07/17 19:59> - Past Medical History Allergies/Adverse Reactions: Allergies Allergy/AdvReac Type Severity Reaction Status Date / Time No Known Allergies Allergy Verified 07/06/17 22:31 Home Medications: Ambulatory Orders Docusate Sodium [Colace -] 100 mg PO DAILY 11/24/16 traZODone HCL [Desyrel -] 50 mg PO HS 11/24/16 Mirtazapine [Remeron -] 15 mg PO HS #30 tablet 12/20/16 Review of Systems - Review of Systems Able to Perform ROS?: Yes Comments:: 07/07/17 00:36 GENERAL/CONSTITUTIONAL: No fever or chills. No weakness. HEAD, EYES, EARS, NOSE AND THROAT: No change in vision. No ear pain or discharge. No sore throat. CARDIOVASCULAR: (+) chest wall pain No shortness of breath. RESPIRATORY: No cough, wheezing, or hemoptysis. GASTROINTESTINAL: (+)nausea. (+) generalized abdomen pain, worse to the side. No vomiting, diarrhea or constipation. GENITOURINARY: No dysuria, frequency, or change in urination. MUSCULOSKELETAL: (+)Back pain. No joint or muscle swelling or pain. No neck. SKIN: No rash NEUROLOGIC: No headache, vertigo, loss of consciousness, or change in strength/ sensation. ENDOCRINE: No increased thirst. No abnormal weight change. HEMATOLOGIC/LYMPHATIC: No anemia, easy bleeding, or history of blood clots. ALLERGIC/IMMUNOLOGIC: No hives or skin allergy. <Mavis Mosley - Last Filed: 07/07/17 01:15> *Physical Exam - Vital Signs Last Vital Signs Temp Pulse Resp BP Pulse Ox 97.2 F L 86 21 129/65 99 07/06/17 22:27 07/06/17 22:27 07/06/17 22:27 07/06/17 22:27 07/06/17 22:27 - Physical Exam Comments: 07/07/17 00:36 GENERAL: (+)The patient seems uncomfortable. The patient is in no acute distress. HEAD: Normal with no signs of trauma. EYES: PERRLA, EOMI, sclera anicteric, conjunctiva clear. ENT: Ears normal, nares patent, oropharynx clear without exudates. Moist mucous membranes. NECK: Normal range of motion, supple without lymphadenopathy, JVD, or masses. LUNGS: Breath sounds equal, clear to auscultation bilaterally. No wheezes, and no crackles. HEART:Regular rate and rhythm, normal S1 and S2 without murmur, rub or gallop. ABDOMEN:(+) Diffuse tenderness to palpation, worse in the left quadrant. Voluntary guarding. No rebound. Soft. No masses palpable. Rectal exam: (+) no external hemorrhoid detected. Loose stool noted. No stool in the rectal vault. EXTREMITIES: Normal range of motion, no edema. No clubbing or cyanosis. No erythema, or tenderness. NEUROLOGICAL: Cranial nerves II through XII grossly intact. Normal speech. No focal neurological deficits. MUSCULOSKELETAL: Back non-tender to palpation, no CVA tenderness SKIN: Warm, Dry, normal turgor, no rashes or lesions noted. <Mavis Mosley - Last Filed: 07/07/17 01:15> - Vital Signs Last Vital Signs Temp Pulse Resp BP Pulse Ox 97.2 F L 86 21 129/65 99 07/06/17 22:27 07/06/17 22:27 07/06/17 22:27 07/06/17 22:27 07/06/17 22:27 <Carly Andrade - Last Filed: 07/07/17 19:59> ED Treatment Course - LABORATORY CBC & Chemistry Diagram: 07/07/17 00:01 07/07/17 00:01 - ADDITIONAL ORDERS Additional order review: 07/07/17 00:01 RBC 4.24 MCV 86.9 MCHC 33.3 RDW 13.3 MPV 8.0 Neutrophils % 68.7 Lymphocytes % 22.1 D Monocytes % 8.1 Eosinophils % 0.2 Basophils % 0.9 - Medications Given in the ED: ED Medications Discontinued Medications Generic Name Dose Route Start Last Admin Trade Name Freq PRN Reason Stop Dose Admin Sodium Chloride 1,000 mls @ 1,000 mls/hr 07/06/17 23:11 07/07/17 00:05 Normal Saline - IV 07/07/17 00:10 1,000 mls/hr ASDIR STA Administration Morphine Sulfate 4 mg 07/06/17 23:11 07/07/17 00:04 Morphine Injection - IVPUSH 07/06/17 23:12 4 mg ONCE ONE Administration Ondansetron HCl 4 mg 07/06/17 23:11 07/07/17 00:05 Zofran Injection IVPUSH 07/06/17 23:12 4 mg ONCE ONE Administration <Mavis Mosley - Last Filed: 07/07/17 01:15> - LABORATORY CBC & Chemistry Diagram: 07/07/17 00:01 07/07/17 00:01 <Carly Andrade - Last Filed: 07/07/17 19:59> Medical Decision Making - Medical Decision Making 07/07/17 00:09 Ms Wilson is a 61 yo F with a history of hypoparathyroidism, constipation ( Requiring intermittent use of laxatives) Pt was seen in the ER yesterday for non specific complaints She was also seen by Urology who told her she may have a UTI and may also have a kidney stone Pt states that she last used laxative 2 days ago She has been trying to have a bowel movement but does not feel that she completely evacuated her bowels She is passing gas While in the hair salon this evening she noted a gradual, severe worsening of her abdominal pain It is located through out the abdomen, worse on the sides (+) nausea No vomiting No fevers Pt denies previously having pain like this No abdominal trauma Pt also has pain in her bilateral flanks Pt had severe pain en route to the ER when she went over the bumps in the road On examination Pt is very uncomfortable, pt is tearful RRR CTA Abd diffusely distended, LLQ very tender to palpation, (+) voluntary guarding, No rebound Rectal examination: liquid stools on buttocks and underwears No hard stool palpated in rectal vault DD broad and includes: Diverticulitis, Intrabdominal abscess, perforated viscus, SBO, incarcerated hernia, bowel ischemia, renal colic Will do: Labs CT IVF Pain medications Reassess 07/07/17 00:29 07/07/17 01:16 Laboratory Tests 07/07/17 07/07/17 07/07/17 00:01 00:01 00:01 WBC 7.0 Hgb 12.3 Hct 36.9 Plt Count 263 Sodium 135 L Potassium 4.1 Chloride 98 Carbon Dioxide 23 BUN 23 H Creatinine 0.9 Random Glucose 107 H Lactic Acid 1.[address] shows no pathology, pt will be given bowel regimen - Mag Citrate, Fleets Enema Pt signed out to Dr. Nevarez pending CT results <Carly Andrade - Last Filed: 07/07/17 19:59> *DC/Admit/Observation/Transfer - Attestations Scribe Attestion: 07/07/17 00:37 Documentation prepared by Mavis Mosley, acting as medical specialist for Carly Andrade MD. <Mavis Mosley - Last Filed: 07/07/17 01:15> <Carly Andrade - Last Filed: 07/07/17 19:59> Diagnosis at time of Disposition: Constipation - Discharge Dispostion Disposition: HOME Condition at time of disposition: Stable - Referrals Referrals: Emma Connor MD [Primary Care Provider] - - Patient Instructions Printed Discharge Instructions: Increased Dietary Fiber May Improve Constipation Conditions With Pelvic Scott - Post Discharge Activity
[2017-07-06] MEDS ORDERED: morphine CARPU-JECT 4 MG/1 ML DISP.SYRIN IVPUSH ONE (23:11)
[2017-07-06] MEDS ORDERED: SODIUM CHLORIDE 1,000 ML IV STA (23:11)
[2017-07-06] MEDS ORDERED: ONDANSETRON 4 MG/2 ML VIAL IVPUSH ONE (23:11)
[2017-07-06] MEDS ORDERED: morphine SULFATE 4 MG/ML VIAL ONE (23:37)
[2017-07-06] MEDS ORDERED: ONDANSETRON 4 MG/2 ML VIAL ONE (23:37)
[2017-07-07 00:15] LABS: BASO % 0.9 % (0-2.0); EOS % 0.2 % (0-4.5); HEMATOCRIT 36.9 % (32.4-45.2); HEMOGLOBIN 12.3 GM/dL (10.7-15.3); LYMPH % 22.1 % (8-40); MCH 28.9 pg (25.7-33.7); MCHC 33.3 g/dl (32.0-36.0); MEAN CELL VOLUME 86.9 fl (80-96); MONO % 8.1 % (3.8-10.2); NEUT % 68.7 % (42.8-82.8); PLATELET COUNT 263 K/MM3 (134-434); RBC 4.24 M/mm3 (3.60-5.2); RDW 13.3 % (11.6-15.6)
[2017-07-07 00:46] LABS: AMYLASE 66 U/L (25-115); ANION GAP 14 (8-16); BILIRUBIN,TOTAL 0.6 mg/dL (0.2-1.0); BLOOD UREA NITROGEN 23 mg/dL (7-18); CALCIUM 8.9 mg/dL (8.5-10.1); CHLORIDE 98 mmol/L (98-107); CO2 23 mmol/L (21-32); CREATININE 0.9 mg/dL (0.55-1.02); GLUCOSE,RANDOM 107 mg/dL (74-106); LIPASE 111 U/L (73-393); SGPT/ALT 28 U/L (12-78); SODIUM 135 mmol/L (136-145); TOT PROT 7.9 g/dl (6.4-8.2)
[2017-07-07 00:47] LABS: ALK PHOS 59 U/L (45-117)
[2017-07-07 00:48] LABS: POTASSIUM 4.1 mmol/L (3.5-5.1); SGOT/AST 35 U/L (15-37)
--- NOTE | 2017-07-07 03:33 | PDOC ---
*Physical Exam - Vital Signs Last Vital Signs Temp Pulse Resp BP Pulse Ox 97.2 F L 86 21 129/65 99 07/06/17 22:27 07/06/17 22:27 07/06/17 22:27 07/06/17 22:27 07/06/17 22:27 <Yesi Malhotra - Last Filed: 07/07/17 03:37> - Vital Signs Last Vital Signs Temp Pulse Resp BP Pulse Ox 97.2 F L 86 21 129/65 99 07/06/17 22:27 07/06/17 22:27 07/06/17 22:27 07/06/17 22:27 07/06/17 22:27 <Layne Nevarez - Last Filed: 07/07/17 03:42> ED Treatment Course - LABORATORY CBC & Chemistry Diagram: 07/07/17 00:01 07/07/17 00:01 - ADDITIONAL ORDERS Additional order review: Laboratory Results 07/07/17 07/07/17 00:01 00:01 Sodium 135 L Potassium 4.1 Chloride 98 Carbon Dioxide 23 Anion Gap 14 BUN 23 H Creatinine 0.9 Creat Clearance w eGFR > 60 Random Glucose 107 H Lactic Acid 1.7 Calcium 8.9 Total Bilirubin 0.6 AST 35 ALT 28 Alkaline Phosphatase 59 Total Protein 7.9 Albumin 4.0 Total Amylase 66 Lipase 111 07/07/17 00:01 RBC 4.24 MCV 86.9 MCHC 33.3 RDW 13.3 MPV 8.0 Neutrophils % 68.7 Lymphocytes % 22.1 D Monocytes % 8.1 Eosinophils % 0.2 Basophils % 0.9 - Medications Given in the ED: ED Medications Discontinued Medications Generic Name Dose Route Start Last Admin Trade Name Freq PRN Reason Stop Dose Admin Sodium Chloride 1,000 mls @ 1,000 mls/hr 07/06/17 23:11 07/07/17 00:05 Normal Saline - IV 07/07/17 00:10 1,000 mls/hr ASDIR STA Administration Morphine Sulfate 4 mg 07/06/17 23:11 07/07/17 00:04 Morphine Injection - IVPUSH 07/06/17 23:12 4 mg ONCE ONE Administration Ondansetron HCl 4 mg 07/06/17 23:11 07/07/17 00:05 Zofran Injection IVPUSH 07/06/17 23:12 4 mg ONCE ONE Administration <Yesi Malhotra - Last Filed: 07/07/17 03:37> - LABORATORY CBC & Chemistry Diagram: 07/07/17 00:01 07/07/17 00:01 - ADDITIONAL ORDERS Additional order review: Laboratory Results 07/07/17 07/07/17 00:01 00:01 Sodium 135 L Potassium 4.1 Chloride 98 Carbon Dioxide 23 Anion Gap 14 BUN 23 H Creatinine 0.9 Creat Clearance w eGFR > 60 Random Glucose 107 H Lactic Acid 1.7 Calcium 8.9 Total Bilirubin 0.6 AST 35 ALT 28 Alkaline Phosphatase 59 Total Protein 7.9 Albumin 4.0 Total Amylase 66 Lipase 111 07/07/17 00:01 RBC 4.24 MCV 86.9 MCHC 33.3 RDW 13.3 MPV 8.0 Neutrophils % 68.7 Lymphocytes % 22.1 D Monocytes % 8.1 Eosinophils % 0.2 Basophils % 0.9 - Medications Given in the ED: ED Medications Discontinued Medications Generic Name Dose Route Start Last Admin Trade Name Onesimoq PRN Reason Stop Dose Admin Sodium Chloride 1,000 mls @ 1,000 mls/hr 07/06/17 23:11 07/07/17 00:05 Normal Saline - IV 07/07/17 00:10 1,000 mls/hr ASDIR STA Administration Morphine Sulfate 4 mg 07/06/17 23:11 07/07/17 00:04 Morphine Injection - IVPUSH 07/06/17 23:12 4 mg ONCE ONE Administration Ondansetron HCl 4 mg 07/06/17 23:11 07/07/17 00:05 Zofran Injection IVPUSH 07/06/17 23:12 4 mg ONCE ONE Administration <Layne Nevarez - Last Filed: 07/07/17 03:42> Medical Decision Making - Medical Decision Making 07/07/17 03:37 EXAM: ABDOMEN \T\ PELVIS CT WITH CONTR HISTORY: Abdominal pain COMPARISON: None. FINDINGS: Lung bases are clear. The visualized cardiac chambers are normal size and configuration. Punctate non-obstructing right renal stone is noted. Normal liver , gallbladder, pancreas, spleen, adrenal glands and left kidney. The stomach and abdominal small and large bowel are normal. There is no aortic aneurysm. There is no significant retroperitoneal lymphadenopathy. The pelvic small and large bowel are normal the appendix is normal. The uterus and adnexal structures are probably for a small calcified fibroid. Urinary bladder is unremarkable. There is no pelvic free fluid. No discrete pelvic lymphadenopathy is identified. IMPRESSION: Punctate nonobstructing right renal stone No evidence of acute pathology. Read by: Manuel Simms MD <Yesi Malhotra - Last Filed: 07/07/17 03:37> - Medical Decision Making 07/07/17 03:33 I received pt on signout. Comes with abd pain. Large and small bowel and appy normal. Pt has punctate stones. Raeann colic. Follow with PMD Nikolas <Layne Nevarez - Last Filed: 07/07/17 03:42> *DC/Admit/Observation/Transfer - Attestations Scribe Attestion: 07/07/17 03:38 Documentation prepared by Yesi Malhotra, acting as medical lab technician for Layne Nevarez MD. <Yesi Malhotra - Last Filed: 07/07/17 03:37> - Discharge Dispostion Decision to Admit order: No <Layne Nevarez - Last Filed: 07/07/17 03:42> Diagnosis at time of Disposition: Constipation - Discharge Dispostion Disposition: HOME Condition at time of disposition: Stable - Referrals Referrals: Emma Connor MD [Primary Care Provider] - - Patient Instructions Printed Discharge Instructions: Increased Dietary Fiber May Improve Constipation Conditions With Pelvic Scott - Post Discharge Activity
== END 2017-07-07 03:50 | disposition home or self-care (01) ==
LOC: JER 22:18
PROC: 3E033NZ Introduction of Analgesics, Hypnotics, Sedatives into Peripheral Vein, Percutaneous Approach (ICD-10-PCS; principal; 2017-07-06)
PROC: 3E033GC Introduction of Other Therapeutic Substance into Peripheral Vein, Percutaneous Approach (ICD-10-PCS; 2017-07-06)
DX: K59.00 Constipation, unspecified (principal); R11.0 Nausea; I10 Essential (primary) hypertension; E78.5 Hyperlipidemia, unspecified; E11.9 Type 2 diabetes mellitus without complications; K21.9 Gastro-esophageal reflux disease without esophagitis; E21.4 Other specified disorders of parathyroid gland
CPT/HCPCS: 36415; 71045-TC-FY; 74177-TC; 80053; 82150; 82550; 82553; 83605; 83690; 84484; 85025; 96374; 96375; 99282-25; J7030

== ENCOUNTER 2017-10-12 22:05 | Emergency (ER) | payer OTHER ==
[2017-10-12 22:19] VITALS: BP 119/37; PULSE 80; TEMP 98; BMI 30.1
--- NOTE | 2017-10-12 22:36 | PDOC ---
History of Present Illness - General Chief Complaint: Laceration Stated Complaint: LACERATION TO FINGER Time Seen by Provider: 10/12/17 22:35 - History of Present Illness Initial Comments: 10/12/17 23:21 Ms. Wilson is a 62 yo female w/ preDM (not on medications) who presents for evaluation of laceration to R 2nd finger. 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 Knife had not been used and was clean to her knowledge. Patient is unclear when her last tetanus shot was. Ms. Wilson has no other complaints at this time. Past History - Past Medical History Allergies/Adverse Reactions: Allergies Allergy/AdvReac Type Severity Reaction Status Date / Time No Known Allergies Allergy Verified 07/06/17 22:31 Home Medications: Ambulatory Orders Docusate Sodium [Colace -] 100 mg PO DAILY 11/24/16 traZODone HCL [Desyrel -] 50 mg PO HS 11/24/16 Mirtazapine [Remeron -] 15 mg PO HS #30 tablet 12/20/16 Cephalexin [Keflex] 500 mg PO QID #28 capsule 10/12/17 Anemia: No Asthma: Yes Cancer: No Cardiac Disorders: No CVA: No COPD: No CHF: No DVT: No Dementia: No Diabetes: Yes GI Disorders: Yes (gerd) Disorders: No HTN: No Hypercholesterolemia: Yes Liver Disease: No Seizures: No Thyroid Disease: No - Surgical History Abdominal Surgery: No Appendectomy: No Cardiac Surgery: No Cholecystectomy: No Lung Surgery: No Neurologic Surgery: No Orthopedic Surgery: No - Immunization History Immunization Up to Date: Yes - Suicide/Smoking/Psychosocial Hx Smoking Status: No Smoking History: Never smoked Have you smoked in the past 12 months: No Number of Cigarettes Smoked Daily: 0 Hx Alcohol Use: No Drug/Substance Use Hx: No Substance Use Type: None Hx Substance Use Treatment: No Review of Systems - Review of Systems Comments:: 10/12/17 23:23 GENERAL/CONSTITUTIONAL: No fever or chills. No weakness. HEAD, EYES, EARS, NOSE AND THROAT: No change in vision. No ear pain or discharge. No sore throat. CARDIOVASCULAR: No chest pain or shortness of breath RESPIRATORY: No cough, wheezing, or hemoptysis. GASTROINTESTINAL: No nausea, vomiting, diarrhea or constipation. GENITOURINARY: No dysuria, frequency, or change in urination. MUSCULOSKELETAL: +Pain at finger after laceration as described SKIN: No rash NEUROLOGIC: No headache, vertigo, loss of consciousness, or change in strength/ sensation. ENDOCRINE: No increased thirst. No abnormal weight change HEMATOLOGIC/LYMPHATIC: No anemia, easy bleeding, or history of blood clots. ALLERGIC/IMMUNOLOGIC: No hives or skin allergy. *Physical Exam - Vital Signs Last Vital Signs Temp Pulse Resp BP Pulse Ox 98.0 F 80 18 119/37 96 10/12/17 22:16 10/12/17 22:16 10/12/17 22:16 10/12/17 22:16 10/12/17 22:16 - Physical Exam Comments: 10/12/17 23:24 GENERAL: Awake, alert, and fully oriented, in no acute distress HEAD: No signs of trauma, normocephalic, atraumatic EYES: PERRLA, EOMI, sclera anicteric, conjunctiva clear ENT: Auricles normal inspection, hearing grossly normal, nares patent, oropharynx clear without exudates. Moist mucosa NECK: Normal ROM, supple, no lymphadenopathy, JVD, or masses LUNGS: No distress, speaks full sentences, clear to auscultation bilaterally HEART: Regular rate and rhythm, normal S1 and S2, no murmurs, rubs or gallops, peripheral pulses normal and equal bilaterally. ABDOMEN: Soft, nontender, normoactive bowel sounds. No guarding, no rebound. No masses EXTREMITIES: +1-2 cm laceration through medial side of R 2nd finger at distal phalange. NEUROLOGICAL: Cranial nerves II through XII grossly intact. Normal speech, normal gait, no focal sensorimotor deficits SKIN: Warm, Dry, normal turgor, no rashes or lesions noted. Procedures - Laceration/Wound Repair Right Medial Finger 2nd digit Wound Length: to 2.5 cm Wound Explored: clean Wound's Depth, Shape: superficial Irrigated w/ Saline: No Betadine Prep: Yes Anesthesia: 2% Lidocaine Amount of Anesthetic (ccs): 2 Wound Debrided: minimal Wound Repaired With: Sutures Suture Size/Type: 5:0 Number of Sutures: 3 Layer Closure: No Sterile Dressing Applied: Yes Splint Applied: No Sling Applied: No Medical Decision Making - Medical Decision Making 10/12/17:26 Ms. Wilson is a 62 yo female w/ pmh as described who presents for evaluation of small finger laceration. Wound cleaned with betadyne and irrigated with tap water for several minutes. Laceration repaired as above with 3 5-0 monofilament sutures with good approximation. Patient given return precautions and booster shot IM. Discharging to home. *DC/Admit/Observation/Transfer Diagnosis at time of Disposition: Finger laceration Qualifiers: Encounter type: initial encounter Finger: index finger Damage to nail status: without damage Foreign body presence: without foreign body Laterality: unspecified laterality Qualified Code(s): S61.218A - Laceration without foreign body of other finger without damage to nail, initial encounter - Discharge Dispostion Disposition: HOME Condition at time of disposition: Stable - Prescriptions Prescriptions: Cephalexin [Keflex] 500 mg PO QID #28 capsule - Referrals Referrals: Chloe Dawkins MD [Primary Care Provider] - - Patient Instructions Printed Discharge Instructions: DI for Laceration Repair Additional Instructions: Please take all antibiotics as prescribed. Please keep the wound clean and dry. Do not get the sutures wet for 24 hours. Please avoid any further injury to the finger. Please have the wound checked in 48 hours. The sutures should be removed in 1 week. Please return to the ED with any further concerns. - Post Discharge Activity Forms/Work/School Notes: Back to Work
[2017-10-12] MEDS ORDERED: DIPHTH,PERTUSS(ACELL),TET 0.5 ML DISP.SYRIN IM ONE (22:58)
[2017-10-12] MEDS ORDERED: CEPHALEXIN MONOHYDRATE 500 MG CAPSULE (UD) PO ONE (22:58)
[2017-10-12] MEDS ORDERED: CEPHALEXIN MONOHYDRATE 500 MG CAPSULE (UD) ONE (22:58)
--- NOTE | 2017-10-12 23:06 | PDOC ---
Attending Attestation - Resident Resident Name: Satya Andrews - ED Attending Attestation I have performed the following: I have examined & evaluated the patient, The case was reviewed & discussed with the resident, I agree w/resident's findings & plan, Exceptions are as noted - HPI HPI: 10/12/17 22:59 62yo female who is RHD with R index finger lac when grabbing a knife earlier tonight. No active bleeding. 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 tetanus is not utd. - Physicial Exam PE: 10/12/17 23:00 Gen: aaox3, nad heart: +s1s2 reg lungs: cta b/l ext: radial pulses intact b/l, R hand index finger with nail intact, distal phalanx lac that is jagged in nature. no active bleeding, muscle strength intact , sensation intact, brisk cap refill to distal tip of finger - Medical Decision Making 10/12/17 22:59 I, Dr. Selena Dubon, DO, attest that this document has been prepared under my direction and personally reviewed by me in its entirety. I further attest, that it accurately reflects all work, treatment, procedures and medical decision -making performed by me. 10/12/17 23:01 a/p: 62yo female with R index finger laceration -will update tetanus -knife was clean -will need sutures -keflex -repair of laceration, wound is clean -d/c to home Discharge Disposition - Diagnosis Finger laceration - Discharge Dispostion Disposition: HOME Condition at time of disposition: Stable Last Admission D/C Date: 11/25/16 Decision to Admit order: No - Prescriptions Prescriptions: Cephalexin [Keflex] 500 mg PO QID #28 capsule - Referrals Referrals: Chloe Dawkins MD [Primary Care Provider] - - Patient Instructions Printed Discharge Instructions: DI for Laceration Repair Additional Instructions: Please take all antibiotics as prescribed. Please keep the wound clean and dry. Do not get the sutures wet for 24 hours. Please avoid any further injury to the finger. Please have the wound checked in 48 hours. The sutures should be removed in 1 week. Please return to the ED with any further concerns. - Post Discharge Activity
[2017-10-12] MEDS ORDERED: ACETAMINOPHEN 325 MG TABLET (FP) PO ONE (23:07)
[2017-10-12] MEDS ORDERED: ACETAMINOPHEN 325 MG TABLET (FP) ONE ×2 (23:09→23:10)
== END 2017-10-12 23:27 | disposition home or self-care (01) ==
LOC: JER 22:05 → JERFT 22:05
PROC: 3E0234Z Introduction of Serum, Toxoid and Vaccine into Muscle, Percutaneous Approach (ICD-10-PCS; principal; 2017-10-12)
PROC: 0HQFXZZ Repair Right Hand Skin, External Approach (ICD-10-PCS; 2017-10-12)
DX: S61.210A Laceration without foreign body of right index finger without damage to nail, initial encounter (principal); W26.0XXA Contact with knife, initial encounter; Y93.G1 Activity, food preparation and clean up; Y92.89 Other specified places as the place of occurrence of the external cause; Y99.8 Other external cause status
CPT/HCPCS: 12001; 90471; 90715; 99281-25

== ENCOUNTER 2017-10-26 11:38 | Emergency (ER) | payer OTHER ==
[2017-10-26 11:49] VITALS: BP 140/58; PULSE 81; TEMP 97; BMI 29.3
--- NOTE | 2017-10-26 12:40 | PDOC ---
Suture Removal/Wound Check HPI - History of Present Illness Chief Complaint: Suture/Staple Removal(Here) Stated Complaint: STAPLE/SUTURE REMOVAL Time Seen by Provider: 10/26/17 12:24 History Source: Yes: Patient Exam Limitations: Yes: No Limitations Treated at: [facility] Date of Last ED visit: 10/14/17 - Previous ED Treatment Type of procedure performed on last visit: Yes: Laceration Repair Tetanus Immunization: Yes: Up to Date Antibiotics Prescribed: Yes - Onset of Previous Treatment Date of Occurence: 10/12/17 Past History - Past Medical History Allergies/Adverse Reactions: Allergies Allergy/AdvReac Type Severity Reaction Status Date / Time No Known Allergies Allergy Verified 10/26/17 11:49 Home Medications: Ambulatory Orders Docusate Sodium [Colace -] 100 mg PO DAILY 11/24/16 traZODone HCL [Desyrel -] 50 mg PO HS 11/24/16 Mirtazapine [Remeron -] 15 mg PO HS #30 tablet 12/20/16 Anemia: No Asthma: Yes Cancer: No Cardiac Disorders: No CVA: No COPD: No CHF: No DVT: No Dementia: No Diabetes: Yes GI Disorders: Yes (gerd) Disorders: No HTN: No Hypercholesterolemia: Yes Liver Disease: No Seizures: No Thyroid Disease: No - Surgical History Abdominal Surgery: No Appendectomy: No Cardiac Surgery: No Cholecystectomy: No Lung Surgery: No Neurologic Surgery: No Orthopedic Surgery: No - Immunization History Immunization Up to Date: Yes - Suicide/Smoking/Psychosocial Hx Smoking Status: No Smoking History: Never smoked Have you smoked in the past 12 months: No Number of Cigarettes Smoked Daily: 0 Hx Alcohol Use: No Drug/Substance Use Hx: No Substance Use Type: None Hx Substance Use Treatment: No Suture Removal/Wound Check PE - Physical Exam Laceration/Wound Check Symptoms: reports: None Current Severity Level: None Maximum Severity Level: None Pain Localization: None Location of Laceration/Wound: right: Finger (2nd finger) Pain Radiation: None *Review of Systems - Review of Systems Able to Perform ROS?: Yes Constitutional: No: Chills, Fever, Malaise HEENTM: No: Symptoms Reported Respiratory: No: Symptoms reported Cardiac (ROS): No: Symptoms Reported ABD/GI: No: Symptoms Reported Musculoskeletal: No: Joint Pain, Joint Swelling, Muscle Pain, Muscle Weakness, Joint Stiffness Integumentary: Yes: See HPI All Other Systems: Reviewed and Negative *Physical Exam - Vital Signs Last Vital Signs Temp Pulse Resp BP Pulse Ox 97 F L 81 18 140/58 L 98 10/26/17 11:46 10/26/17 11:46 10/26/17 11:46 10/26/17 11:46 10/26/17 11:46 - Physical Exam Comments: 10/26/17 13:06 GENERAL: Well developed, well nourished. Awake and alert. No acute distress. CARDIOVASCULAR: Regular rate and rhythm. No murmurs, rubs, or gallops. PULMONARY: No evidence of respiratory distress. Lungs clear to auscultation bilaterally. No wheezing, rales or rhonchi. ABDOMINAL: Soft. Non-tender. Non-distended. No rebound or guarding. No organomegaly. Normoactive bowel sounds MUSCULOSKELETAL : Well healed 2 cm linear laceration to plantar aspect of distal phalanx of right index finger with [address] No erythema to area, no drainage to wound site or evidence of wound dehiscence. EXTREMITIES: No cyanosis. No clubbing. No edema. No calf tenderness. SKIN: Well healed 2 cm linear laceration to plantar aspect of distal phalanx of right index finger with [address]. No erythema to area, no drainage to wound site or evidence of wound dehiscence.Warm and dry. NEUROLOGICAL: Alert, awake, appropriate. No motor deficits in the lower extremities. Gait is normal without ataxia. PSYCHIATRIC: Cooperative. Good eye contact. Appropriate mood and affect. General Appearance: Yes: Nourished, Appropriately Dressed. No: Apparent Distress Medical Decision Making - Medical Decision Making 10/26/17 13:08 Patient with history of diabetes on meds presenting for suture removal status post presenting to this ago with laceration to right index finger requiring sutures. Wound check shows no evidence of wound infection. 3 interrupted sutures removed without complication. Bacitracin applied to wound and wound covered with adhesive bandage. Patient educated on home wound care. *DC/Admit/Observation/Transfer Diagnosis at time of Disposition: Visit for suture removal Finger laceration Qualifiers: Encounter type: subsequent encounter Finger: index finger Damage to nail status : without damage Foreign body presence: without foreign body Laterality: right Qualified Code(s): S61.210D - Laceration without foreign body of right index finger without damage to nail, subsequent encounter - Discharge Dispostion Disposition: HOME Condition at time of disposition: Stable Decision to Admit order: No - Referrals Referrals: Chloe Dawkins MD [Primary Care Provider] - - Patient Instructions Printed Discharge Instructions: How to Care for a Surgical Wound, DI for Suture Removal Additional Instructions: Apply home bacitracin to wound twice a day until healed. - Post Discharge Activity
== END 2017-10-26 12:44 | disposition home or self-care (01) ==
LOC: JERFT 11:38
DX: Z48.02 Encounter for removal of sutures (principal)
CPT/HCPCS: 99281-25

== ENCOUNTER 2018-07-22 12:10 | Inpatient (IN) | payer OTHER ==
[2018-07-22] MEDS ORDERED: KETOROLAC TROMETHAMINE 15 MG/ML VIAL IM ONE (12:36)
--- NOTE | 2018-07-22 12:36 | PDOC ---
History of Present Illness - General Chief Complaint: Pain Stated Complaint: right knee pain and swelling since sunday Time Seen by Provider: 07/22/18 12:12 - History of Present Illness Initial Comments: 07/22/18 12:30 62 F with h/o HTN, pre-DM, HLD presents to ED with R knee pain and swelling. Pt states that she noticed the pain while walking 2 days ago. Denies tripping or falling or any other injury. The pain is worse with weight bearing and bending the knee. The next morning, pt started noticing swelling in her knee. Denies any redness. Denies F/C. Is still able to weight bear and range her knee but with some discomfort. Pt denies any recent travel/immobilization. No h/o DVT. No Chest pain/SOB. Past History - Past Medical History Allergies/Adverse Reactions: Allergies Allergy/AdvReac Type Severity Reaction Status Date / Time No Known Allergies Allergy Verified 10/26/17 11:49 Home Medications: Ambulatory Orders NK [No Known Home Medication] 07/22/18 Anemia: No Asthma: Yes Cancer: No Cardiac Disorders: No CVA: No COPD: No CHF: No DVT: No Dementia: No Diabetes: Yes GI Disorders: Yes (gerd) Disorders: No HTN: No Hypercholesterolemia: Yes Liver Disease: No Seizures: No Thyroid Disease: No - Surgical History Abdominal Surgery: No Appendectomy: No Cardiac Surgery: No Cholecystectomy: No Lung Surgery: No Neurologic Surgery: No Orthopedic Surgery: No - Immunization History Immunization Up to Date: Yes - Suicide/Smoking/Psychosocial Hx Smoking Status: No Smoking History: Never smoked Have you smoked in the past 12 months: No Number of Cigarettes Smoked Daily: 0 Hx Alcohol Use: No Drug/Substance Use Hx: No Substance Use Type: None Hx Substance Use Treatment: No Review of Systems - Review of Systems Comments:: 07/22/18 12:33 GENERAL/CONSTITUTIONAL: No fever or chills. No weakness. HEAD, EYES, EARS, NOSE AND THROAT: No change in vision. No ear pain or discharge. No sore throat. CARDIOVASCULAR: No chest pain, no shortness of breath, no loss of consciousness RESPIRATORY: No cough, wheezing, or hemoptysis. GASTROINTESTINAL: No nausea, vomiting, diarrhea or constipation. GENITOURINARY: No dysuria, frequency, or change in urination. MUSCULOSKELETAL: + R knee swelling and pain, No neck or back pain. SKIN: No rash NEUROLOGIC: No vertigo, no change in strength/sensation. ENDOCRINE: No increased thirst. No abnormal weight change. HEMATOLOGIC/LYMPHATIC: No anemia, easy bleeding, or history of blood clots. ALLERGIC/IMMUNOLOGIC: No hives or skin allergy. *Physical Exam - Physical Exam Comments: 07/22/18 12:34 "GENERAL: Awake, alert, and fully oriented, in no acute distress. HEAD: No signs of trauma EYES: PERRLA, EOMI, sclera anicteric, conjunctiva clear ENT: Auricles normal inspection, hearing grossly normal, nares patent, oropharynx clear without exudates. Moist mucosa NECK: Nontender, no stepoffs, Normal ROM, supple, no lymphadenopathy, JVD, or masses LUNGS: Breath sounds equal, clear to auscultation bilaterally. No wheezes, and no crackles HEART: Regular rate and rhythm, normal S1 and S2, no murmurs, rubs or gallops ABDOMEN: Soft, nontender, normoactive bowel sounds. No guarding, no rebound. No masses EXTREMITIES: + R knee with effusion, no erythema, tender to palpation posteriorly, no ankle edema, no calf tenderness, full active ROM NEUROLOGICAL: Cranial nerves II through XII intact. 5/5 strength and sensation in all extremities, Normal speech, normal gait, normal cerebellar function SKIN: Warm, Dry, normal turgor, no rashes or lesions noted. ED Treatment Course - LABORATORY CBC & Chemistry Diagram: 07/22/18 14:00 07/22/18 14:00 - RADIOLOGY Radiology Studies Ordered: Category Date Time Status KNEE 3 POS-RIGHT [RAD] Stat Radiology 07/22/18 12:30 Ordered DUPLEX VASCUL US-1 LEG [US] Stat Ultrasound 07/22/18 12:30 Ordered Medical Decision Making - Medical Decision Making 07/22/18 12:34 62 F with R knee swelling and pain x 2 days. Suspect pseudogout vs rheumatoid arthritis vs osteoarthritis. Pt with no evidence of traumatic injury. No fevers to suggest septic arthritis. No DVT risk factors but will r/o with doppler. - XR - Doppler - Toradol 07/22/18 13:49 US shows + common femoral DVT I discussed case with pt's primary, Dr. Marcum, who recommends admission due to pt's poor history of compliance and follow up. Will send labs, coags and start heparin vs lovenox 07/22/18 14:55 Labs wnl Lovenox 1mg/kg ordered Pt admitted to hospitalist *DC/Admit/Observation/Transfer Diagnosis at time of Disposition: DVT (deep venous thrombosis) - Discharge Dispostion Condition at time of disposition: Stable Decision to Admit order: Yes - Referrals Referrals: Chloe Dawkins MD [Primary Care Provider] - - Patient Instructions - Post Discharge Activity - Attestations Physician Attestion: 07/22/18 14:55 I, Dr. Josh Mabry MD, attest that this document has been prepared under my direction and personally reviewed by me in its entirety. I further attest, that it accurately reflects all work, treatment, procedures and medical decision -making performed by me.
[2018-07-22] MEDS ORDERED: KETOROLAC TROMETHAMINE 15 MG/ML VIAL ONE (13:03)
[2018-07-22 14:11] LABS: BASO % 4.2 % (0-2.0); EOS % 0.3 % (0-4.5); HEMATOCRIT 40.2 % (32.4-45.2); HEMOGLOBIN 13.1 GM/dl (10.7-15.3); LYMPH % 25.8 % (8-40); MCH 28.8 pg (25.7-33.7); MCHC 32.5 g/dl (32.0-36.0); MEAN CELL VOLUME 88.6 fl (80-96); MEAN PLT VOLUME 7.8 fl (7.5-11.1); MONO % 7.9 % (3.8-10.2); NEUT % 61.8 % (42.8-82.8); PLATELET COUNT 250 K/MM3 (134-434); RBC 4.53 M/mm3 (3.60-5.2); RDW 12.6 % (11.6-15.6); WHITE BLOOD COUNT 7.9 K/mm3 (4.0-10.8)
[2018-07-22 14:23] LABS: ACTIVATED PTT 24.5 SECONDS (25.2-36.5)
[2018-07-22 14:25] LABS: CALCIUM 8.7 mg/dl (8.5-10); CREATININE 0.6 mg/dl (0.55-1.3); POTASSIUM 3.7 mmol/L (3.5-5.1); TOT PROT 7.5 g/dl (6.4-8.2)
[2018-07-22 14:27] LABS: INR 1.27 (0.82-1.09); PROTHROMBIN TIME (PATIENT) 14.2 SEC (10.2-13.0)
[2018-07-22] MEDS ORDERED: ENOXAPARIN NA (PORCINE) 80 MG/0.8 ML DISP.SYRIN SQ ONE (14:34)
[2018-07-22] MEDS ORDERED: ENOXAPARIN NA (PORCINE) 100 MG/1 ML DISP.SYRIN SQ ONE (14:37)
--- NOTE | 2018-07-22 15:04 | HP ---
CHIEF COMPLAINT: Right knee pain PCP: Dr. Marcum HISTORY OF PRESENT ILLNESS: 62 year-old female with a PMH significant for HTN, HLD, asthma, Type II NIDDM, hyperparathyroidism, GERD, and breast cancer s/p left lumpectomy 2016 not treated with radiation or chemotherapy. Patient presented to the ED for evaluation of right knee pain that began two days ago while at a [employer]. There was no precipitating event, no fall, no trauma. The next morning patient noticed swelling in the knee, no erythema, no warmth. She is able to weight bear but with discomfort. Patient reports several episodes of SOB when climbing up hills over the past week that required her to stop and catch her breath. Denies chest pain, palpitations, lightheadedness, orthopenia, lower extremity swelling. No recent travel. No prolonged car rides or periods of immobilization. ER course was notable for: (1) US RLE: DVT right common femoral vein (2) Lovenox subq 80mg x 1 Recent Travel: No PAST MEDICAL HISTORY: Hypertension Hyperlipidemia Asthma Type II NIDDM Hyperparathyroidism GERD Breast cancer PAST SURGICAL HISTORY: Parathyoidectomy x 2 Left lumpectomy (Dr. Esquivel, [facility], 2016) Social History: Smoking: quit 15 years ago, smoked for 26 years Alcohol: no Drugs: no Family History: Father age 51 of DVT that led to PE; mother 79 NE and multiple myeloma; sister alive age 52 h/o NE; brother age 61 a&w; 2 children a&w Allergies No Known Allergies Allergy (Verified 10/26/17 11:49) HOME MEDICATIONS: Home Medications Medication Instructions Recorded NK [No Known Home Medication] 07/22/18 REVIEW OF SYSTEMS CONSTITUTIONAL: Absent: fever, chills, diaphoresis, generalized weakness, malaise, loss of appetite, weight change HEENT: Absent: rhinorrhea, nasal congestion, throat pain, throat swelling, difficulty swallowing, mouth swelling, ear pain, eye pain, visual changes CARDIOVASCULAR: Absent: chest pain, syncope, palpitations, irregular heart rate, lightheadedness , peripheral edema RESPIRATORY: +SOB, CARRILLO x 1 week Absent: cough, shortness of breath, dyspnea with exertion, orthopnea, wheezing, stridor, hemoptysis GASTROINTESTINAL: Absent: abdominal pain, abdominal distension, nausea, vomiting, diarrhea, constipation, melena, hematochezia GENITOURINARY: Absent: dysuria, frequency, urgency, hesitancy, hematuria, flank pain, genital pain MUSCULOSKELETAL: +right knee pain and swelling Absent: myalgia, arthralgia, joint swelling, back pain, neck pain SKIN: Absent: rash, itching, pallor HEMATOLOGIC/IMMUNOLOGIC: Absent: easy bleeding, easy bruising, lymphadenopathy, frequent infections ENDOCRINE: Absent: unexplained weight gain, unexplained weight loss, heat intolerance, cold intolerance NEUROLOGIC: Absent: headache, focal weakness or paresthesias, dizziness, unsteady gait, seizure, mental status changes, bladder or bowel incontinence PSYCHIATRIC: Absent: anxiety, depression, suicidal or homicidal ideation, hallucinations. PHYSICAL EXAMINATION Vital Signs - 24 hr 07/22/18 12:11 Temperature 98.2 F Pulse Rate 78 Respiratory 16 Rate Blood Pressure 133/57 L O2 Sat by Pulse 100 Oximetry (%) GENERAL: Awake, alert, and fully oriented, in no acute distress. HEAD: Normal with no signs of trauma. EYES: Pupils equal, round and reactive to light, extraocular movements intact, sclera anicteric, conjunctiva clear. No lid lag. EARS, NOSE, THROAT: Ears normal, nares patent, oropharynx clear without exudates. Moist mucous membranes. NECK: Normal range of motion, supple without lymphadenopathy, JVD, or masses. LUNGS: Breath sounds equal, clear to auscultation bilaterally. No wheezes, and no crackles. No accessory muscle use. HEART: Regular rate and rhythm, normal S1 and S2 ABDOMEN: Soft, nontender, not distended UPPER EXTREMITIES: 2+ pulses, warm, well-perfused. No cyanosis. No clubbing. No peripheral edema. LEFT LOWER EXTREMITY: 2+ pulses, warm, well-perfused. No calf tenderness. No peripheral edema. RIGHT LOWER EXTREMITY: mild swelling to right knee, Garcia's cyst seen posteriorly, decreased ROM secondary to pain; no calf tenderness NEUROLOGICAL: Cranial nerves II-XII intact. Normal speech. Laboratory Results - last 24 hr 07/22/18 07/22/18 07/22/18 14:00 14:00 14:00 WBC 7.9 RBC 4.53 Hgb 13.1 Hct 40.2 MCV 88.6 MCH 28.8 MCHC 32.5 RDW 12.6 Plt Count 250 MPV 7.8 Absolute Neuts (auto) 5.0 Neutrophils % 61.8 Lymphocytes % 25.8 Monocytes % 7.9 Eosinophils % 0.3 Basophils % 4.2 H PT with INR 14.2 H INR 1.27 H PTT (Actin FS) 24.5 L Sodium 140 Potassium 3.7 Chloride 103 Carbon Dioxide 25 Anion Gap 12 BUN 9.0 Creatinine 0.6 Est GFR (CKD-EPI)AfAm 113.22 Est GFR (CKD-EPI)NonAf 97.69 Random Glucose 84 Calcium 8.7 Total Bilirubin 1.0 AST 27 ALT 22 Alkaline Phosphatase 50 Total Protein 7.5 Albumin 4.0 ASSESSMENT/PLAN 62 year-old female with a PMH significant for HTN, HLD, asthma, Type II NIDDM, hyperparathyroidism, GERD, and breast cancer s/p left lumpectomy 2015 not treated with radiation or chemotherapy. Presented with right knee pain and found to have DVT. Right common femoral vein DVT --confirmed on US --several risk factors: h/o breast cancer, lumpectomy in 2015, no radiation, no chemo; has not followed with an oncologist since the surgery; normal mammo --family history of DVT, father of PE at age 51 --continue lovenox 1mg/kg q12h r/o PE --Wells score moderate risk --CTA pending h/o breast cancer --will get CT abdomen, pelvis with contrast Hypertension --BP stable --on no anti-hypertensives Hyperlipidemia --not on statin therapy Asthma --stable, on no meds Type II NIDDM --saw Dr. Marcum earlier today; she has been off metformin but he re- prescribed today; will cover with Novolog sliding scale while inpatient Hyperparathyroidism --not on meds GERD --on no meds FEN Fluids: PO intake adequate Electrolytes: replete as indicated Nutrition: low sodium, diabetic DVT prophylaxis: on lovenox subq 1mg/kg q12h Dispo: continues to require inpatient care. Full code Visit type - Emergency Visit Emergency Visit: Yes Care time: The patient presented to the Emergency Department on the above date and was hospitalized for further evaluation of their emergent condition. - New Patient This patient is new to me today: Yes Date on this admission: 07/22/18 - Critical Care Critical Care patient: No
[2018-07-22] MEDS ORDERED: ACETAMINOPHEN 325 MG TABLET (FP) ONE (19:18)
[2018-07-22] MEDS: ACETAMINOPHEN 325 MG TABLET (FP) PO PRN (19:20)
[2018-07-22] MEDS ORDERED: KETOROLAC TROMETHAMINE 15 MG/ML VIAL IVPUSH ONE (22:09)
[2018-07-22] MEDS ORDERED: MELATONIN 5 MG TABLETS PO ONE (22:10)
[2018-07-22] MEDS: INSULIN SLIDING SCALE (NOVOLOG) 1 VIAL SQ SCH (22:21)
[2018-07-23] MEDS: ENOXAPARIN NA (PORCINE) 80 MG/0.8 ML DISP.SYRIN SQ SCH ×2 (01:44→15:24)
[2018-07-23] MEDS: INSULIN SLIDING SCALE (NOVOLOG) 1 VIAL SQ SCH ×3 (07:13→17:54)
[2018-07-23 10:27] VITALS: PULSE 71
--- NOTE | 2018-07-23 12:21 | EKG ---
Test Reason : Blood Pressure : / mmHG Vent. Rate : 070 BPM Atrial Rate : 070 BPM P-R Int : 160 ms QRS Dur : 074 ms QT Int : 382 ms P-R-T Axes : 074 038 056 degrees QTc Int : 412 ms POOR DATA QUALITY, INTERPRETATION MAY BE ADVERSELY AFFECTED NORMAL SINUS RHYTHM NORMAL ECG Confirmed by MD KARI, KRISTA ([id number]) on 07/23/2018 12:21:24 PM Referred By: Confirmed By:KRISTA PIERCE MD
[2018-07-23 14:10] VITALS: BP 130/66; TEMP 98.9
--- NOTE | 2018-07-23 17:36 | PN ---
Physical Exam: SUBJECTIVE: Patient seen and examined. Right knee still painful. OBJECTIVE: Vital Signs Period Temp Pulse Resp BP Sys/Zarate Pulse Ox Last 24 Hr 98.2 F-99.0 F 64-83 16-18 112-130/54-68 95-100 GENERAL: Awake, alert, and fully oriented, in no acute distress. HEAD: Normal with no signs of trauma. EYES: Pupils equal, round and reactive to light, extraocular movements intact, sclera anicteric, conjunctiva clear. No lid lag. EARS, NOSE, THROAT: Ears normal, nares patent, oropharynx clear without exudates. Moist mucous membranes. NECK: Normal range of motion, supple without lymphadenopathy, JVD, or masses. LUNGS: Breath sounds equal, clear to auscultation bilaterally. No wheezes, and no crackles. No accessory muscle use. HEART: Regular rate and rhythm, normal S1 and S2 ABDOMEN: Soft, nontender, not distended UPPER EXTREMITIES: 2+ pulses, warm, well-perfused. No cyanosis. No clubbing. No peripheral edema. LEFT LOWER EXTREMITY: 2+ pulses, warm, well-perfused. No calf tenderness. No peripheral edema. RIGHT LOWER EXTREMITY: mild swelling to right knee NEUROLOGICAL: Cranial nerves II-XII intact. Normal speech. Laboratory Results - last 24 hr 07/22/18 07/23/18 07/23/18 22:16 06:57 11:53 POC Glucometer 78 85 73 Active Medications Generic Name Dose Route Start Last Admin Trade Name Freq PRN Reason Stop Dose Admin Acetaminophen 650 mg 07/22/18 17:44 07/22/18 19:20 Tylenol - PO 650 mg Q6H PRN Administration PAIN Enoxaparin Sodium 80 mg 07/23/18 02:00 07/23/18 15:24 Lovenox - SQ 80 mg Q12H ELIUD Administration Insulin Aspart 1 vial 07/22/18 22:00 07/23/18 12:04 Novolog Vial Sliding Scale - SQ Not Given ACHS [facility] Protocol ASSESSMENT/PLAN: 62 year-old female with a PMH significant for HTN, HLD, asthma, Type II NIDDM, hyperparathyroidism, GERD, and breast cancer s/p left lumpectomy 2016 not treated with radiation or chemotherapy. Presented with right knee pain and found to have DVT. Right common femoral vein DVT --confirmed on US --several risk factors: h/o breast cancer, lumpectomy in 2016, no radiation, no chemo; has not followed with an oncologist since the surgery; normal mammo --family history of DVT, father of PE at age 51 --continue lovenox 1mg/kg q12h r/o PE --Wells score moderate risk --CTA done, pending dictation h/o breast cancer --CTAP done, pending dictation Hypertension --BP stable --on no anti-hypertensives Hyperlipidemia --not on statin therapy Asthma --stable, on no meds Type II NIDDM --saw Dr. Marcum yesterday who restarted metformin after a hiatus period; will cover with Novolog sliding scale while inpatient Hyperparathyroidism --not on meds GERD --on no meds FEN Fluids: PO intake adequate Electrolytes: replete as indicated Nutrition: low sodium, diabetic DVT prophylaxis: on lovenox subq 1mg/kg q12h Dispo: continues to require inpatient care. Full code Visit type - Emergency Visit Emergency Visit: Yes ED Registration Date: 07/22/18 Care time: The patient presented to the Emergency Department on the above date and was hospitalized for further evaluation of their emergent condition. - New Patient This patient is new to me today: No - Critical Care Critical Care patient: No
[2018-07-23] MEDS: ACETAMINOPHEN 325 MG TABLET (FP) PO PRN (17:54)
--- NOTE | 2018-07-23 18:31 | DS ---
Physical Exam: SUBJECTIVE: Patient seen and examined at bedside. present. OBJECTIVE: Vital Signs Period Temp Pulse Resp BP Sys/Zarate Pulse Ox Last 24 Hr 98.2 F-99.0 F 64-83 16-18 112-130/54-68 95-100 PHYSICAL EXAM GENERAL: Awake, alert, and fully oriented, in no acute distress. HEAD: Normal with no signs of trauma. EYES: Pupils equal, round and reactive to light, extraocular movements intact, sclera anicteric, conjunctiva clear. No lid lag. EARS, NOSE, THROAT: Ears normal, nares patent, oropharynx clear without exudates. Moist mucous membranes. NECK: Normal range of motion, supple without lymphadenopathy, JVD, or masses. LUNGS: Breath sounds equal, clear to auscultation bilaterally. No wheezes, and no crackles. No accessory muscle use. HEART: Regular rate and rhythm, normal S1 and S2 ABDOMEN: Soft, nontender, not distended UPPER EXTREMITIES: 2+ pulses, warm, well-perfused. No cyanosis. No clubbing. No peripheral edema. LEFT LOWER EXTREMITY: 2+ pulses, warm, well-perfused. No calf tenderness. No peripheral edema. RIGHT LOWER EXTREMITY: mild swelling to right knee, +tender NEUROLOGICAL: Cranial nerves II-XII intact. Normal speech. LABS Laboratory Results - last 24 hr 07/22/18 07/23/18 07/23/18 22:16 06:57 11:53 POC Glucometer 78 85 73 07/23/18 17:53 POC Glucometer 65 HOSPITAL COURSE: Date of Admission:07/22/18 Date of Discharge: 07/23/18 Pre hospital course 62 year-old female with a PMH significant for HTN, HLD, asthma, Type II NIDDM, hyperparathyroidism, GERD, and breast cancer s/p left lumpectomy 2016 not treated with radiation or chemotherapy. Patient presented to the ED for evaluation of right knee pain that began two days ago while at a [email or web address]. There was no precipitating event, no fall, no trauma. The next morning patient noticed swelling in the knee, no erythema, no warmth. She is able to weight bear but with discomfort. Patient reports several episodes of SOB when climbing up hills over the past week that required her to stop and catch her breath. Denies chest pain, palpitations, lightheadedness, orthopenia, lower extremity swelling. No recent travel. No prolonged car rides or periods of immobilization. ER course (1) US RLE: DVT right common femoral vein (2) Lovenox subq 80mg x 1 Subsequent hospital course 62 year-old female with a PMH significant for HTN, HLD, asthma, Type II NIDDM, hyperparathyroidism, GERD, and breast cancer s/p left lumpectomy 2015 not treated with radiation or chemotherapy. Presented with right knee pain and found to have DVT. Right common femoral vein DVT --confirmed on US --several risk factors: h/o breast cancer, lumpectomy in 2016, no radiation, no chemo; has not followed with an oncologist since the surgery; normal mammo --family history of DVT, father of PE at age 51 --treated with lovenox 1mg/kg q12h; discharged on Eliquis --will follow up with tools developer Dr. Teo Isabel PE ruled out --CTA negative for PE h/o breast cancer --CT chest, abdomen, pelvis with contrast: no evidence of neoplastic disease Hypertension --BP stable --on no anti-hypertensives Hyperlipidemia --not on statin therapy Asthma --stable, on no meds Type II NIDDM -Novolog sliding scale coverage Hyperparathyroidism --not on meds GERD --on no meds Minutes to complete discharge: 35 Discharge Summary Reason For Visit: DEEP VEIN THROMBOSIS (DVT) Current Active Problems DVT (deep venous thrombosis) (Acute) Condition: Improved - Instructions Diet, Activity, Other Instructions: You are being discharged today after having been diagnosed with a deep vein thrombosis, or blood clot, in your right leg. It is essential that you take blood thinning medication. You have been prescribed Eliquis. For the first 7 days you will take 10mg twice a day. After that, you will take 5mg twice a day. Please call the office of Dr. Teo Isabel, [employer], tomorrow morning and make an appointment to see her at your earliest opportunity. Return to the emergency department for any new or worsening symptoms. Referrals: Sean Hamm MD [Staff Physician] - Teo Isabel MD [Staff Physician] - Disposition: HOME - Home Medications Comprehensive Discharge Medication List: Ambulatory Orders Apixaban [Eliquis] 5 mg PO BID #60 tablet 07/23/18 Apixaban [Eliquis] 10 mg PO BID #13 tablet 07/23/18 This patient is new to me today: No Emergency Visit: Yes ED Registration Date: 07/22/18 Care time: The patient presented to the Emergency Department on the above date and was hospitalized for further evaluation of their emergent condition. Critical Care patient: No - Discharge Referral Referred to [facility] Med [facility] No
== END 2018-07-23 18:40 | disposition home or self-care (01) | DRG 197 ==
LOC: FER 12:10 → FM/S 14:56
PROVIDERS: ADMIT Internal Medicine; ATTEND Nurse Practitioner Acute Care
DX: I82.411 Acute embolism and thrombosis of right femoral vein (principal); I10 Essential (primary) hypertension; E78.5 Hyperlipidemia, unspecified; E11.9 Type 2 diabetes mellitus without complications; K21.9 Gastro-esophageal reflux disease without esophagitis; E21.3 Hyperparathyroidism, unspecified; M71.21 Synovial cyst of popliteal space [Baker], right knee; J45.909 Unspecified asthma, uncomplicated; Z85.3 Personal history of malignant neoplasm of breast
CPT/HCPCS: 36415; 71275-TC; 73562-TC-RT-FY; 74177-TC; 80053; 82962; 85025; 85610; 85730; 93005; 93971-TC; 99282-25

== ENCOUNTER 2020-02-13 04:42 | Day surgery (SDC) | payer OTHER ==
[2020-02-09 11:46] VITALS: BMI 29.6
[2020-02-13] MEDS ORDERED: BUPIVACAINE HCL 100 ML ONE (07:31)
[2020-02-13] MEDS ORDERED: ceFAZolin 2 GRAM PREMIX BAG IVPB ONE (07:42)
[2020-02-13] MEDS ORDERED: BUPIVACAINE HCL/PF 0.5% (5MG/ML) 10 ML VIAL IJ ONE ×2 (07:43)
[2020-02-13] MEDS ORDERED: PROPOFOL 20 ML ONE ×4 (07:50)
[2020-02-13] MEDS ORDERED: ROCURONIUM BROMIDE 50 MG/5 ML SYRINGE ONE (07:50)
[2020-02-13] MEDS ORDERED: MIDAZOLAM HCL 2 MG/2 ML SINGLE DOSE VIAL ONE ×2 (07:50→08:13)
[2020-02-13] MEDS ORDERED: SUCCINYLCHOLINE CHLORIDE 200 MG/10 ML SYRINGE ONE (07:50)
[2020-02-13] MEDS ORDERED: DEXAMETHASONE SOD PHOSPHATE 4 MG/1 ML VIAL ONE (08:18)
[2020-02-13] MEDS ORDERED: ceFAZolin SODIUM 1 GM VIAL ONE (08:20)
[2020-02-13] MEDS ORDERED: SODIUM CHLORIDE 0.9% P/F 10 ML VIAL IJ ONE (08:21)
[2020-02-13] MEDS ORDERED: HYDROmorphone HCl 2 MG/ML VIAL ONE (08:43)
[2020-02-13] MEDS ORDERED: GLYCOPYRROLATE 0.2 MG/1 ML VIAL ONE (09:26)
[2020-02-13] MEDS ORDERED: KETOROLAC TROMETHAMINE 30 MG/1 ML VIAL ONE (09:26)
[2020-02-13] MEDS ORDERED: NEOSTIGMINE METHYLSULFATE 0.5 MG/ML - 10 ML MDV ONE (09:26)
[2020-02-13] MEDS ORDERED: ONDANSETRON 4 MG/2 ML VIAL IVPUSH PRN (09:52)
[2020-02-13] MEDS ORDERED: PROMETHAZINE HCL 25 MG/1 ML VIAL IVPB PRN (09:52)
[2020-02-13] MEDS ORDERED: LACTATED RINGERS SOLUTION 1,000 ML IV SCH (10:00)
[2020-02-13] MEDS ORDERED: ONDANSETRON 4 MG/2 ML VIAL IVPUSH ONE (10:45)
[2020-02-13] MEDS ORDERED: ONDANSETRON 4 MG/2 ML VIAL ONE (12:17)
[2020-02-13 13:26] VITALS: TEMP 97.7
[2020-02-13 18:57] VITALS: BP 121/66; PULSE 60
== END 2020-02-13 17:30 | disposition home or self-care (01) ==
LOC: JASU-SURG 04:42
PROVIDERS: ATTEND Surgery
PROC: 0FT44ZZ Resection of Gallbladder, Percutaneous Endoscopic Approach (ICD-10-PCS; principal; 2020-02-13 08:00)
DX: K82.8 Other specified diseases of gallbladder (principal)
CPT/HCPCS: 82962; 88304-TC; 94760

== ENCOUNTER 2020-06-07 04:50 | Day surgery (SDC) | payer OTHER ==
[2020-06-04 07:54] VITALS: BMI 30.2
[2020-06-07] MEDS ORDERED: ACETAMINOPHEN 325 MG TABLET (FP) PO PRN (12:10)
[2020-06-07] MEDS ORDERED: ONDANSETRON 4 MG/2 ML VIAL IVPUSH PRN (12:10)
[2020-06-07] MEDS ORDERED: oxyCODONE HCL 5 MG TABLET PO PRN (12:10)
[2020-06-07] MEDS ORDERED: LACTATED RINGERS SOLUTION 1,000 ML IV SCH (12:15)
[2020-06-07] MEDS ORDERED: MIDAZOLAM HCL 2 MG/2 ML SINGLE DOSE VIAL ONE (12:23)
[2020-06-07] MEDS ORDERED: PROPOFOL 20 ML ONE (12:23)
[2020-06-07 14:55] VITALS: BP 114/70; PULSE 84; TEMP 97.6
== END 2020-06-07 15:05 | disposition home or self-care (01) ==
LOC: JASU-SURG 04:50
PROVIDERS: ATTEND Urology
PROC: 0TF3XZZ Fragmentation in Right Kidney Pelvis, External Approach (ICD-10-PCS; principal; 2020-06-07 11:00)
DX: N20.0 Calculus of kidney (principal)

== ENCOUNTER 2020-11-19 22:37 | Emergency (ER) | payer OTHER ==
[2020-11-19 22:43] VITALS: BP 113/73; PULSE 94; TEMP 97; BMI 30.7
== END 2020-11-20 00:24 | disposition home or self-care (01) ==
LOC: JER 22:37
DX: S91.111A Laceration without foreign body of right great toe without damage to nail, initial encounter (principal); W26.8XXA Contact with other sharp object(s), not elsewhere classified, initial encounter
CPT/HCPCS: 99282-25

== ENCOUNTER 2020-11-24 09:34 | Emergency (ER) | payer OTHER ==
[2020-11-24 09:38] VITALS: BP 132/61; PULSE 70; TEMP 97.5; BMI 31.5
== END 2020-11-24 10:48 | disposition home or self-care (01) ==
LOC: JERFT 09:34
DX: S91.201A Unspecified open wound of right great toe with damage to nail, initial encounter (principal); W26.8XXA Contact with other sharp object(s), not elsewhere classified, initial encounter
CPT/HCPCS: 99281-25

== ENCOUNTER 2022-06-08 06:09 | Day surgery (SDC) | payer OTHER ==
[2022-06-02 15:41] VITALS: BMI 31.8
[2022-06-08] MEDS ORDERED: BUPIVACAINE HCL/EPINEPHRINE/PF 30 ML VIAL IJ ONE (07:20)
[2022-06-08] MEDS ORDERED: BUPIVACAINE HCL/PF 0.25% (2.5MG/ML) 10 ML VIAL ONE (07:20)
[2022-06-08] MEDS ORDERED: PROPOFOL 40 ML ONE (07:20)
[2022-06-08] MEDS ORDERED: MIDAZOLAM HCL 2 MG/2 ML SINGLE DOSE VIAL ONE (07:20)
[2022-06-08] MEDS ORDERED: BUPIVACAINE HCL/PF 0.5% (5MG/ML) 10 ML VIAL ONE (07:21)
[2022-06-08] MEDS ORDERED: ACETAMINOPHEN 325 MG TABLET (FP) PO PRN (07:22)
[2022-06-08] MEDS ORDERED: IBUPROFEN 400 MG TABLET (FP) PO PRN (07:22)
[2022-06-08] MEDS ORDERED: LIDOCAINE HCL 1%, 10 MG/ML (20ML VIAL) ONE (07:32)
[2022-06-08] MEDS ORDERED: LIDOCAINE HCL 1%, 10 MG/ML (20ML VIAL) NR ONE ×2 (07:43)
[2022-06-08] MEDS ORDERED: ONDANSETRON 4 MG/2 ML VIAL IVPUSH PRN (08:16)
[2022-06-08] MEDS ORDERED: oxyCODONE HCL 5 MG TABLET PO PRN (08:16)
[2022-06-08] MEDS ORDERED: LACTATED RINGERS SOLUTION 1,000 ML IV SCH (08:30)
[2022-06-08 09:00] VITALS: RESP 18; TEMP 97.4
[2022-06-08 09:16] VITALS: BP 106/64; PULSE 68
== END 2022-06-08 10:01 | disposition home or self-care (01) ==
LOC: FASU 06:09
PROVIDERS: ATTEND Orthopaedic Surgery
PROC: 0LN70ZZ Release Right Hand Tendon, Open Approach (ICD-10-PCS; principal; 2022-06-08 07:45)
DX: M65.341 Trigger finger, right ring finger (principal)
CPT/HCPCS: 94760